=== PATIENT | male | born 1955 | race Asian ===

== ENCOUNTER 2018-04-14 08:41 | Outpatient (CLI) | payer MEDICARE, MEDICAID, SELFPAY ==
[2018-04-14] VITALS (11 sets, daily range): BP systolic 161–210; BP diastolic 72–112; PULSE 39–51; RESP 16–25; TEMP 36.1; O2SAT 96–100
--- NOTE | 2018-04-14 08:43 | DI.RAD.S_ITS ---
PROCEDURE: PAIN C/T INTERLAMINAR INJECT INDICATIONS: Cervical stenosis with upper extremity radiculopathy FINDINGS: Fluoroscopic spot filming was performed to verify placement of spinal needles at the posterior midline epidural space, C6-C7 region level(s), as labeled on the films. Appropriate location(s) of the needle tip(s) was confirmed by injection of iodinated contrast. IMPRESSION: Successful dorsal epidural injection at the posterior midline, C6 and C7 area. Dictated by: Fabien Reno M.D. on 04/14/2018 at 12:46 Approved by: Fabien Reno M.D. on 04/14/2018 at 12:47
[2018-04-14] MEDS: DEXAMETHASONE 10 MG/ML VIAL 30 MG INJ (10:05)
[2018-04-14] MEDS: LIDOCAINE 1% 20 ML INJ 5 ML INJ (10:05)
[2018-04-14] MEDS: MIDAZOLAM 5 MG/5 ML VIAL IV (10:05)
[2018-04-14] MEDS: IOPAMIDOL 15 ML VIAL 3 ML INJ (10:05)
--- NOTE | 2018-04-14 10:31 | PM.PROC.1 ---
Procedures Date/Time Date of procedure: 04/14/18 Time of procedure: 10:31 General Procedure description: PREOP DIAGNOSIS 1. CERVICAL STENOSIS, 2. CERVICAL HNP WITH UPPER EXTREMITY RADICULAR FEATURES, POST OP DIAGNOSIS 1. CERVICAL STENOSIS, 2. CERVICAL HNP WITH UPPER EXTREMITY RADICULAR FEATURES, PROCEDURES 1. FLUORSCOPICALLY GUIDED CONTRAST CONTROLLED INTERLAMINAR EPIDURAL STEROID INJECTION - C6/7 TL MIGUE PHYSICIAN: Allan Flores DO INDICATIONS Multilevel Cervical Stenosis with HNP with Upper Extremity Paresthesias. FINDINGS Cervical Stenosis due to disc deterioration and nerve root irritation and nerve root irritation DESCRIPTION OF PROCEDURE Fluoroscopically guided, contrast-controlled C6/7 translaminar epidural steroid injection with conscious sedation. Following denial of allergy and review of potential side effects and complications, including, but not necessarily limited to, infection, allergic reaction, local tissue breakdown, temporary as well as permanent nerve injury, stroke, paralysis, and possible , the patient indicated that patient understood and agreed to proceed. An informed consent document was signed by the patient, witnessed by a nurse, and placed in the patient's chart. Additionally, other treatment options including modalities, medications, and physical therapy were reviewed with the patient. Per the patient request, IV conscious sedation was administered via 4mg of Versed to patient comfort. The patient's vital signs were monitored throughout the procedure by both the nurse and the physician without significant fluctuation. The patient remained conversant throughout the procedure. In the prone position, following sterile prep and drape of the cervical region, the C6/7 translaminar space was identified fluoroscopically. The skin was anesthetized via a 25-gauge 1.5-inch needle with 1% lidocaine solution. At this point, a 25-gauge, 2.5-inch short bevel spinal needle was atraumatically introduced and advanced under fluoroscopic guidance into epidural space at the C6/7 translaminar space. Depth was confirmed on lateral view. Radiological data, including multiple fluoroscopic views of the cervical spine, reveal a spinal needle at the C6/7 translaminar space. Lateral views then show placement of the needle in the epidural space. Subsequent views show contrast material flowing superiorly and inferiorly in the epidural space. DSA fluoroscopy with live contrast injection, once again, confirmed no vascular or intrathecal uptake. At this point, using loss of resistance technique with saline and air, the epidural space was entered. Following negative aspiration, injection of approximately 1.5 cc of Isovue-200 with live fluoroscopy in the AP view confirmed epidural flow in the epidural space without vascular or intrathecal uptake observed. Subsequently, a test dose of 1 cc of 1% lidocaine solution was injected and patient was observed for two minutes without signs or symptoms of complications, including abdominal pain, shortness of breath, bilateral upper or lower extremity weakness, nausea and vomiting, prior to steroid injection. At this point, 3 cc or 30 mg of dexamethasone was then injected without incident. The patient was then transferred to the recovery area where they were observed for an appropriate period of time after the injection. The patient reported a VAS score of 6 prior to the procedure and a post-procedure VAS of 0. Total Fluoroscopy Time: 37.0 seconds Total Conscious Time: 24min POST OP INSTRUCTIONS The patient was provided a Pain Log to continue to record their response to the target-specific procedure prior to follow-up visit with the referring provider. Additionally, specific post-injection care instructions and a contact number to our office were provided if concerns arise regarding possible complications associated with the procedure are suspected. Allan Flores DO Complications: none
== END 2018-04-14 11:15 | disposition home or self-care (01) ==
PROVIDERS: PCP Family Medicine; Visit Provider Physical Medicine & Rehabilitation
DX: M48.02 Spinal stenosis, cervical region (principal); M47.22 Other spondylosis with radiculopathy, cervical region
CPT/HCPCS: 62321; 99152; 99153; J1100; J2250

== ENCOUNTER 2018-05-15 08:42 | Inpatient (IN) | payer MEDICARE, MEDICAID, SELFPAY ==
[2018-05-15] VITALS (29 sets, daily range): BP systolic 123–195; BP diastolic 63–96; PULSE 26–48; RESP 10–23; TEMP 36–36.4; O2SAT 77–100
--- NOTE | 2018-05-15 08:41 | DI.CT.S_ITS ---
PROCEDURE: CT HEAD/BRAIN WO CON INDICATIONS: mental status change TECHNIQUE: Noncontrast 4.5 mm thick angled axial sections acquired from the foramen magnum to the vertex, with coronal and sagittal reformats. For radiation dose reduction, the following was used: automated exposure control, adjustment of mA and/or kV according to patient size. COMPARISON: [facility], CT, HEAD WITHOUT CONTRAST, 05/22/2016, 15:59. FINDINGS: Image quality: Excellent. CSF spaces: Basal cisterns are patent. No extra-axial fluid collections. The ventricles are symmetric in size and shape. Brain: No intracranial bleeds or masses. No change in hypodensity within the anteroinferior frontal lobes bilaterally. There is cerebral volume loss for age, with resultant ventricular and sulcal prominence. There are periventricular and deep white matter chronic small vessel ischemic changes. There is intracranial internal carotid artery atherosclerosis. Skull and face: Calvarium and visualized facial bones appear intact, without suspicious lesions. Sinuses: Visualized sinuses and mastoids are clear. IMPRESSION: No acute intracranial abnormality. Findings discussed with Dr. Resendiz on 05.15.18 at 0903 hrs. Dictated by: Benjamin Anderson M.D. on 05/15/2018 at 9:03 Approved by: Benjamin Anderson M.D. on 05/15/2018 at 9:05
--- NOTE | 2018-05-15 09:03 | DI.CT.S_ITS ---
PROCEDURE: CT ANGIO HEAD AND NECK INDICATIONS: mental status change TECHNIQUE: Pre-contrast 4.5 mm thick sections acquired from the foramen magnum to the vertex. After the administration of intravenous contrast, 1 mm thick sections acquired from the aortic arch through the [place] of [place]. Post-contrast 4.5 mm thick sections then re-acquired from the foramen magnum to the vertex. 3-dimensional sytzbvw-gezigqcaw-gniqxsmeec (MIP) and/or volume rendering reformats were acquired of the central intracranial vasculature and neck separately. COMPARISON: None. FINDINGS: Image quality: Excellent. BRAIN: CSF spaces: Ventricles are normal in size and shape. Basal cisterns are patent. No extra-axial fluid collections. Brain: No midline shift. No intracranial bleeds or masses. [place]-white matter interface appears intact. Skull and face: Calvarium and facial bones appear intact, without suspicious lesions. Orbits appear normal. Sinuses: Left maxillary sinus opacification is present. Mild right maxillary sinus mucosal thickening. HEAD CT ANGIOGRAPHY: Anterior circulation: Intracranial internal carotid arteries are normal in size and flow. The flow within the paired anterior cerebral arteries is normal and symmetric. The flow within the middle cerebral arteries is normal and symmetric. The anterior communicating artery is seen. No aneurysms are seen. Posterior circulation: Visualized portions of the vertebral arteries demonstrate normal caliber, and join to form a normal appearing basilar artery. Flow within the posterior cerebral arteries is normal and symmetric. No aneurysms are seen. NECK CT ANGIOGRAPHY: Carotid system: The great vessels demonstrate a conventional anatomy as they arise from the aortic arch. The origins of the common carotid arteries appear patent. The common carotid arteries demonstrate normal caliber and courses. The bifurcation regions are both widely patent. The internal carotid arteries demonstrate normal calibers and courses. Posterior circulation: The origins of the vertebral arteries both appear widely patent. The more superior extracranial portions of both vertebral arteries also demonstrate normal courses and calibers. They join to form a normal appearing basilar artery. Soft tissues: Visualized neck soft tissues demonstrate an 18 mm diameter peripherally calcified right thyroid nodule Bones: No suspicious bony lesions. Visualized cervical spine appears normally aligned. IMPRESSION: 1. No acute process involving the arterial tree of the head and neck. No evidence of large vessel occlusion. 2. No acute intracranial abnormality. 3. Right thyroid mass, which could be further assessed with ultrasound, if clinically indicated. Any quantitative measurements of stenosis were performed using NASCET criteria. Dictated by: Benjamin Anderson M.D. on 05/15/2018 at 9:39 Approved by: Benjamin Anderson M.D. on 05/15/2018 at 9:43
--- NOTE | 2018-05-15 09:22 | ED.AMS ---
HPI - Altered Mental Status General Chief Complaint: Altered Mental Status Stated Complaint: Unconsoious Time Seen by Provider: 05/15/18 08:44 Source: family and EMS Mode of arrival: EMS Limitations: altered mental status History of Present Illness HPI narrative: 63-year-old male with history of hypertension, untreated diabetes, and schizophrenia presents by EMS for evaluation of mental status change. Patient went to bed feeling completely fine and awoke at his baseline. He was last seen normal at 5:00 a.m.. There is a very stressful scenario and the family last evening and the had been discussing the circumstances with her at 5:00 a.m. before leaving his bedside. He was found unresponsive at about 830 without focal neurologic findings. EMS arrived and found him obtunded, administered Narcan which may have woken him up a bit but not significantly. His fast exam was negative and he was activated as a code stroke given mental status change. His administers his medications and states there been no changes and there is no chance that he got any extras MD complaint: altered mental status and decreased responsiveness Onset (ago): hour(s) Time: 05:00 Timing confirmed by: spouse Severity: moderate Consistency of symptoms: constant Treatments prior to arrival: IV fluid, oxygen and other (narcan) Related Data Home Medications Medication Instructions Recorded Confirmed ASPIRIN (Aspir-Low) 81 mg PO QDAY #0 03/16/12 05/15/18 cetirizine 10 mg PO QDAYP PRN #0 tab 07/21/16 05/15/18 lurasidone [Latuda] 20 mg PO QPM #0 03/05/17 05/15/18 cholecalciferol (vitamin D3) 400 unit PO QDAY #0 10/06/17 04/29/18 [Vitamin D3] multivitamin [Multiple Vitamins] 1 tab PO QDAY #0 10/06/17 04/29/18 pyridoxine (vitamin B6) 100 mg PO QPM #0 10/06/17 04/29/18 vitamin E 1,000 unit PO QDAY #0 10/06/17 04/29/18 Previous Rx's Medication Instructions Recorded simvastatin [Zocor] 40 mg PO QDAY #90 tab 02/20/17 hydrochlorothiazide 25 mg PO QDAY #90 tab 10/09/17 albuterol sulfate [Ventolin HFA] 2 puff INH Q4HP PRN #1 inh 11/18/17 losartan [Cozaar] 100 mg PO QDAY #30 tab 01/04/18 fluoxetine 40 mg PO QDAY #90 cap 01/18/18 doxazosin 4 mg tablet 4 mg PO ONCE #30 tab 02/17/18 metoprolol succinate [Toprol XL] 50 mg PO BID #60 tab 03/18/18 trazodone 50 mg tablet See Label Instructions PO HSP PRN 04/26/18 #30 tab acetaminophen 300 mg-codeine 30 mg See Label Instructions PO Q6H PRN 05/11/18 tablet #30 tab Allergies Allergy/AdvReac Type Severity Reaction Status Date / Time smallpox vaccine,live Allergy Mild Verified 04/29/18 10:49 [SMALLPOX VACCINE,LIVE] Review of Systems Review of Systems unobtainable due to mental status Exam Narrative Exam Narrative: Patient of tended, minimally following commands but guarding his airway without difficulty Initial Vital Signs Initial Vital Signs: Vital Signs Pulse Rate 31 L 05/15/18 08:52 Respiratory Rate 18 05/15/18 08:52 Const General: No cooperative and in distress Nutritional Appearance: well nourished Orientation: not alert, not awake, not oriented x3, confused and obtunded Limitations: altered mental status [facility] Head: normocephalic and atraumatic Ears: external ears normal and TM's normal bilaterally Nose: external nose normal and No nasal discharge Face and sinus: sinuses nontender, face symmetric, no sinus tenderness and No dry mucous membranes Mouth: oral mucosae normal and moist mucous membranes Teeth and gingiva: dentition normal Throat: tonsils normal and uvula midline Eyes General: appearance normal, both eyes and all related structures Eyelids: eyelids normal Conjunctivae: conjunctivae normal Sclera: sclerae normal Pupils: PERRL and pinpoint EOM: EOM intact bilaterally Chest Chest: normal inspection of the chest Cardio Rate: regular rate Rhythm: regular rhythm Heart Sounds: no click, no gallops, no murmurs and no rubs Pulses: normal peripheral pulses Back/Spine/Pelvis Back: No CVA tenderness Cervical Spine: cervical ROM normal and No pain with cervical ROM Thoracic/Lumbar Spine: thoracic and lumbar spine normal to inspection Skin General: no rashes or lesions noted, No jaundice and No petechiae Neuro General: no meningeal signs and no focal motor deficits Motor: muscle tone normal throughout Sensory Exam: no sensory deficits noted Extrem General: full ROM, no clubbing, cyanosis or edema, no pedal edema and no calf tenderness Course Orders Ordered: ED Orders 05/15/18 08:41 CT head/brain wo con Stat 05/15/18 08:42 EKG-12 Lead Stat 05/15/18 09:03 CT angio head and neck Stat 05/15/18 09:27 Acetaminophen Stat Blood Culture Stat Complete Blood Count AUTO DIFF Stat Comprehensive Metabolic Panel Stat Ethanol (ETOH) Stat Lactate (Lactic Acid) Stat Prolactin Stat Salicylate Stat Thyroid Stimulating Hormone Stat Troponin I Stat 05/15/18 09:49 Ammonia (NH3) Stat 05/15/18 10:20 Urine Culture Stat Urine Drug Screen, Rapid Stat 05/15/18 12:32 Consult to Loan Services Professional Routine 05/15/18 13:00 MRSA PCR Stat 05/15/18 14:19 BiPAP Ventilatory Support Asse RT PROTOCOL 05/16/18 05:00 B Type Natriuretic Peptide Routine Basic Metabolic Panel Routine Complete Blood Count AUTO DIFF Routine Dextrose (D50w) 25 gm IV PRN PRN PRN Reason: Hypoglycemia Sodium Chloride (Normal Saline 0.9%) 1,000 mls @ 150 mls/hr IV CONT GHADA Last Infusion: 05/15/18 13:11 Dose: 150 mls/hr Admin: 05/15/18 09:33 Dose: 150 mls/hr Insulin Aspart (Novolog Flexpen) 0 unit SUBCUT ACHS GHADA; Protocol Naloxone HCl (Narcan) 0.4 mg IV Q2MIN PRN PRN Reason: Opiate Reversal Last Admin: 05/15/18 09:33 Dose: 0.4 mg Discontinued Medications Naloxone HCl (Narcan) 2 mg IV NOW ONE Stop: 05/15/18 09:46 Last Admin: 05/15/18 09:52 Dose: 2 mg Vital Signs - 8 hr 05/15/18 08:52 05/15/18 08:54 05/15/18 09:20 Temperature 96.9 F L Pulse Rate 31 L 38 L 34 L Respiratory Rate 18 18 18 Blood Pressure 177/89 H Blood Pressure [Right Arm] 153/81 H Pulse Oximetry 100 100 05/15/18 09:27 05/15/18 09:30 05/15/18 09:45 Temperature Pulse Rate 32 L 36 L 26 L Respiratory Rate 18 18 Blood Pressure Blood Pressure [Right Arm] 195/86 H 154/89 H Pulse Oximetry 77 L 98 96 05/15/18 10:03 05/15/18 10:32 05/15/18 10:45 Temperature Pulse Rate 35 L 39 L 37 L Respiratory Rate 18 18 18 Blood Pressure Blood Pressure [Right Arm] 180/79 H 172/65 H 135/64 H Pulse Oximetry 98 97 97 05/15/18 11:14 05/15/18 11:15 05/15/18 11:30 Temperature Pulse Rate 34 L 32 L 32 L Respiratory Rate 18 17 19 Blood Pressure Blood Pressure [Right Arm] 141/73 H 139/77 H 139/73 H Pulse Oximetry 98 98 99 05/15/18 11:45 05/15/18 12:00 05/15/18 12:32 Temperature Pulse Rate 31 L 32 L 37 L Respiratory Rate 21 18 20 Blood Pressure Blood Pressure [Right Arm] 134/71 H 123/65 H 125/75 H Pulse Oximetry 99 98 100 05/15/18 12:45 05/15/18 13:09 05/15/18 13:19 Temperature 97.6 F Pulse Rate 32 L 32 L 42 L Respiratory Rate 20 18 16 Blood Pressure 133/68 H 134/63 H Blood Pressure [Right Arm] 133/68 H Pulse Oximetry 99 98 100 05/15/18 13:27 05/15/18 14:27 05/15/18 15:00 Temperature 96.8 F L Pulse Rate 34 L 31 L Respiratory Rate 22 12 Blood Pressure 187/79 H 183/76 H Blood Pressure [Right Arm] Pulse Oximetry 100 05/15/18 16:05 Temperature Pulse Rate Respiratory Rate Blood Pressure 179/96 H Blood Pressure [Right Arm] Pulse Oximetry MDM - Altered Mental Status Differential Diagnosis Likely alcoholic intoxication, altered mental status, delirium, hypoglycemia, hyponatremia and subarachnoid hemorrhage Medical Records Attestation: I reviewed the patient's medical records. Lab Data Result diagrams: 05/15/18 09:27 05/15/18 09:27 Lab Results 05/15/18 05/15/18 05/15/18 Range/Units 09:27 09:27 09:27 WBC 5.7 (4.5-11.0) X10^3/uL RBC 4.44 L (4.5-5.9) X10^6/uL Hgb 14.1 (13.5-17.5) g/dL Hct 39.5 L (41-53) % MCV 89.0 (80-100) fL MCH 31.7 (26-34) PG MCHC 35.6 (30-36) % RDW 12.7 (11.6-14.8) % Plt Count 189 (150-400) X10^3/uL Neut % (Auto) 61.9 (50-75) % Lymph % (Auto) 27.1 (25-40) % [place] % (Auto) 7.9 (3-14) % Eos % (Auto) 2.6 (2-4) % Baso % (Auto) 0.5 (0-2) % Neut # (Auto) 3500 (8840-5096) /uL Sodium 137 (137-145) mmol/L Potassium 4.0 (3.4-5.1) mmol/L Chloride 97 L (98-107) mmol/L Carbon Dioxide 33 H (22-32) mmol/L BUN 20 (9-20) mg/dL Creatinine 1.20 (0.66-1.25) mg/dL Estimated GFR > 60.0 (>60) mL/min BUN/Creatinine Ratio 16.7 (6-22) Glucose 154 H (80-110) mg/dL Lactate 1.1 (0.7-2.1) mmol/L Calcium 9.2 (8.4-10.2) mg/dL Total Bilirubin 0.7 (0.2-1.3) mg/dL AST 34 (17-59) IU/L ALT 33 (21-72) IU/L Alkaline Phosphatase 49 (38-126) U/L Ammonia (9-30) umol/L Troponin I < 0.012 (0.01-0.034) ng/mL Total Protein 6.9 (6.3-8.2) g/dL Albumin 4.1 (3.5-5.0) g/dL Globulin 2.8 (1.7-4.1) g/dL Albumin/Globulin Ratio 1.5 (1.0-2.8) TSH (0.47-4.68) uIU/mL Prolactin 26.4 H (3.7-17.9) ng/mL Nasal Screen MRSA (PCR) (Negative) Salicylates < 1.0 (<20) mg/dL Urine Opiates Screen (Negative) Ur Oxycodone Screen (Negative) Urine Methadone Screen (Negative) Acetaminophen < 10 L (10-30) ug/mL Ur Barbiturates Screen (Negative) U Tricyclic Antidepress (Negative) Ur Phencyclidine Scrn (Negative) Ur Amphetamines Screen (Negative) U Methamphetamines Scrn (Negative) Ur MDMA Scrn (Ecstasy) (Negative) U Benzodiazepines Scrn (Negative) Urine Cocaine Screen (Negative) U Marijuana (THC) Screen (Negative) Ethyl Alcohol < 10 mg/dL 05/15/18 05/15/18 05/15/18 Range/Units 09:27 09:49 10:20 WBC (4.5-11.0) X10^3/uL RBC (4.5-5.9) X10^6/uL Hgb (13.5-17.5) g/dL Hct (41-53) % MCV (80-100) fL MCH (26-34) PG MCHC (30-36) % RDW (11.6-14.8) % Plt Count (150-400) X10^3/uL Neut % (Auto) (50-75) % Lymph % (Auto) (25-40) % [place] % (Auto) (3-14) % Eos % (Auto) (2-4) % Baso % (Auto) (0-2) % Neut # (Auto) (3916-0955) /uL Sodium (137-145) mmol/L Potassium (3.4-5.1) mmol/L Chloride (98-107) mmol/L Carbon Dioxide (22-32) mmol/L BUN (9-20) mg/dL Creatinine (0.66-1.25) mg/dL Estimated GFR (>60) mL/min BUN/Creatinine Ratio (6-22) Glucose (80-110) mg/dL Lactate (0.7-2.1) mmol/L Calcium (8.4-10.2) mg/dL Total Bilirubin (0.2-1.3) mg/dL AST (17-59) IU/L ALT (21-72) IU/L Alkaline Phosphatase (38-126) U/L Ammonia < 9.0 L (9-30) umol/L Troponin I (0.01-0.034) ng/mL Total Protein (6.3-8.2) g/dL Albumin (3.5-5.0) g/dL Globulin (1.7-4.1) g/dL Albumin/Globulin Ratio (1.0-2.8) TSH 0.86 (0.47-4.68) uIU/mL Prolactin (3.7-17.9) ng/mL Nasal Screen MRSA (PCR) (Negative) Salicylates (<20) mg/dL Urine Opiates Screen Positive H (Negative) Ur Oxycodone Screen Positive H (Negative) Urine Methadone Screen Negative (Negative) Acetaminophen (10-30) ug/mL Ur Barbiturates Screen Negative (Negative) U Tricyclic Antidepress Negative (Negative) Ur Phencyclidine Scrn Negative (Negative) Ur Amphetamines Screen Negative (Negative) U Methamphetamines Scrn Negative (Negative) Ur MDMA Scrn (Ecstasy) Negative (Negative) U Benzodiazepines Scrn Positive H (Negative) Urine Cocaine Screen Negative (Negative) U Marijuana (THC) Screen Negative (Negative) Ethyl Alcohol mg/dL 05/15/18 Range/Units 13:00 WBC (4.5-11.0) X10^3/uL RBC (4.5-5.9) X10^6/uL Hgb (13.5-17.5) g/dL Hct (41-53) % MCV (80-100) fL MCH (26-34) PG MCHC (30-36) % RDW (11.6-14.8) % Plt Count (150-400) X10^3/uL Neut % (Auto) (50-75) % Lymph % (Auto) (25-40) % [place] % (Auto) (3-14) % Eos % (Auto) (2-4) % Baso % (Auto) (0-2) % Neut # (Auto) (5912-9100) /uL Sodium (137-145) mmol/L Potassium (3.4-5.1) mmol/L Chloride (98-107) mmol/L Carbon Dioxide (22-32) mmol/L BUN (9-20) mg/dL Creatinine (0.66-1.25) mg/dL Estimated GFR (>60) mL/min BUN/Creatinine Ratio (6-22) Glucose (80-110) mg/dL Lactate (0.7-2.1) mmol/L Calcium (8.4-10.2) mg/dL Total Bilirubin (0.2-1.3) mg/dL AST (17-59) IU/L ALT (21-72) IU/L Alkaline Phosphatase (38-126) U/L Ammonia (9-30) umol/L Troponin I (0.01-0.034) ng/mL Total Protein (6.3-8.2) g/dL Albumin (3.5-5.0) g/dL Globulin (1.7-4.1) g/dL Albumin/Globulin Ratio (1.0-2.8) TSH (0.47-4.68) uIU/mL Prolactin (3.7-17.9) ng/mL Nasal Screen MRSA (PCR) Negative for mrsa (Negative) Salicylates (<20) mg/dL Urine Opiates Screen (Negative) Ur Oxycodone Screen (Negative) Urine Methadone Screen (Negative) Acetaminophen (10-30) ug/mL Ur Barbiturates Screen (Negative) U Tricyclic Antidepress (Negative) Ur Phencyclidine Scrn (Negative) Ur Amphetamines Screen (Negative) U Methamphetamines Scrn (Negative) Ur MDMA Scrn (Ecstasy) (Negative) U Benzodiazepines Scrn (Negative) Urine Cocaine Screen (Negative) U Marijuana (THC) Screen (Negative) Ethyl Alcohol mg/dL Imaging Data Head/ Neck Angio: Radiologist's impression: PROCEDURE: CT ANGIO HEAD AND NECK INDICATIONS: mental status change TECHNIQUE: Pre-contrast 4.5 mm thick sections acquired from the foramen magnum to the vertex. After the administration of intravenous contrast, 1 mm thick sections acquired from the aortic arch through the [place] of [place]. Post-contrast 4.5 mm thick sections then re-acquired from the foramen magnum to the vertex. 3-dimensional awxghhm-vjeizhins-shkhulrcai (MIP) and/or volume rendering reformats were acquired of the central intracranial vasculature and neck separately. COMPARISON: None. FINDINGS: Image quality: Excellent. BRAIN: CSF spaces: Ventricles are normal in size and shape. Basal cisterns are patent. No extra-axial fluid collections. Brain: No midline shift. No intracranial bleeds or masses. [place]-white matter interface appears intact. Skull and face: Calvarium and facial bones appear intact, without suspicious lesions. Orbits appear normal. Sinuses: Left maxillary sinus opacification is present. Mild right maxillary sinus mucosal thickening. HEAD CT ANGIOGRAPHY: Anterior circulation: Intracranial internal carotid arteries are normal in size and flow. The flow within the paired anterior cerebral arteries is normal and symmetric. The flow within the middle cerebral arteries is normal and symmetric. The anterior communicating artery is seen. No aneurysms are seen. Posterior circulation: Visualized portions of the vertebral arteries demonstrate normal caliber, and join to form a normal appearing basilar artery. Flow within the posterior cerebral arteries is normal and symmetric. No aneurysms are seen. NECK CT ANGIOGRAPHY: Carotid system: The great vessels demonstrate a conventional anatomy as they arise from the aortic arch. The origins of the common carotid arteries appear patent. The common carotid arteries demonstrate normal caliber and courses. The bifurcation regions are both widely patent. The internal carotid arteries demonstrate normal calibers and courses. Posterior circulation: The origins of the vertebral arteries both appear widely patent. The more superior extracranial portions of both vertebral arteries also demonstrate normal courses and calibers. They join to form a normal appearing basilar artery. Soft tissues: Visualized neck soft tissues demonstrate an 18 mm diameter peripherally calcified right thyroid nodule Bones: No suspicious bony lesions. Visualized cervical spine appears normally aligned. IMPRESSION: 1. No acute process involving the arterial tree of the head and neck. No evidence of large vessel occlusion. 2. No acute intracranial abnormality. 3. Right thyroid mass, which could be further assessed with ultrasound, if clinically indicated. Any quantitative measurements of stenosis were performed using NASCET criteria. Dictated by: Benjamin Anderson M.D. on 05/15/2018 at 9:39 Approved by: Benjamin Anderson M.D. on 05/15/2018 at 9:43 Discharge Plan Departure Patient Disposition: Admitted As Inpatient Clinical Impression: Polypharmacy, Accidental overdose Discharge Date/Time: 05/15/18 13:10 Interventions: ED Discharge Assessment Last Done: 05/15/18 13:09 Admit Date/Time: 05/15/18 11:51 Admit Provider: Maximo Long
[2018-05-15] MEDS: NALOXONE 0.4 MG/ML VIAL IV (09:33)
[2018-05-15] MEDS: SODIUM CHLORIDE 0.9% 1,000 ML 150 ML IV ×2 (09:33→18:39)
[2018-05-15 09:37] LABS: Add Manual Diff / Slide Review NO; Basophils Percent Auto 0.5 % (0-2); Eosinophils Percent Auto 2.6 % (2-4); Hematocrit 39.5 % (41-53); Hemoglobin 14.1 g/dL (13.5-17.5); Lymphocytes Percent Auto 27.1 % (25-40); Mean Corpuscular HGB Conc 35.6 % (30-36); Mean Corpuscular Hemoglobin 31.7 PG (26-34); Monocytes Percent Auto 7.9 % (3-14); Neutrophils Absolute Auto 3500 /uL (3000-5900); Neutrophils Percent Auto 61.9 % (50-75); Platelet Count 189 X10^3/uL (150-400); Red Blood Cell Count 4.44 X10^6/uL (4.5-5.9); Red Cell Distribution Width 12.7 % (11.6-14.8); White Blood Cell Count 5.7 X10^3/uL (4.5-11.0)
--- NOTE | 2018-05-15 09:40 | PC.NURSE ---
0849- patient to CT at this time. Received non contrast CT scan of head. Waited for read and then received ct angio with contrast. Second IV placed in CT. Patient on monitor the whole time with HR from 30-48bpm.
--- NOTE | 2018-05-15 09:42 | PC.NURSE ---
0918- returned form CT, back on monitor in room.
[2018-05-15 09:47] LABS: Acetaminophen < 10 ug/mL (10-30); Alanine Aminotransferase 33 IU/L (21-72); Albumin 4.1 g/dL (3.5-5.0); Albumin Globulin Ratio 1.5 (1.0-2.8); Alkaline Phosphatase 49 U/L (38-126); Aspartate Aminotransferase 34 IU/L (17-59); BUN Creatinine Ratio 16.7 (6-22); Bilirubin Total 0.7 mg/dL (0.2-1.3); Blood Urea Nitrogen 20 mg/dL (9-20); Calcium 9.2 mg/dL (8.4-10.2); Carbon Dioxide 33 mmol/L (22-32); Chloride 97 mmol/L (98-107); Estimated Glomerular Filt Rate > 60.0 mL/min (>60); Ethanol (ETOH) < 10 mg/dL; Globulin 2.8 g/dL (1.7-4.1); Glucose 154 mg/dL (80-110); HEMOLYSIS < 15 (0-50); Lactate (Lactic Acid) 1.1 mmol/L (0.7-2.1); Sodium 137 mmol/L (137-145); Total Protein 6.9 g/dL (6.3-8.2)
[2018-05-15 09:49] LABS: Salicylate < 1.0 mg/dL (<20)
[2018-05-15] MEDS: NALOXONE 1 MG/ML SYRINGE 2 MG IV (09:52)
--- NOTE | 2018-05-15 09:55 | PC.NURSE ---
periods of sleep Apnea, maintaining O2 at 1005. has sleep apnea per . Patient responsive with facial grimace to IV placement.
--- NOTE | 2018-05-15 09:59 | PC.NURSE ---
patient having longer periods of apnea with O2 level dipping to 70's. Placed on 2L NC at this time and maintaining at 98% afterward. He is more sedate at this time than previously.
[2018-05-15 10:02] LABS: Prolactin 26.4 ng/mL (3.7-17.9)
[2018-05-15 10:03] LABS: Troponin I < 0.012 ng/mL (0.01-0.034)
[2018-05-15 10:04] LABS: Ammonia (NH3) < 9.0 umol/L (9-30)
--- NOTE | 2018-05-15 10:07 | PC.NURSE ---
0923- Patient began experiencing tremors and stiffness in bilateral upper extremities and face. Pupils still sluggish with 3mm size and equal. No upward or deviated gaze. DO Proctor at bedside. Unsure of seizure like activity at this time. Order given for narcan.
--- NOTE | 2018-05-15 10:08 | PC.NURSE ---
0945- patient noted to no longer be stiff but is flaccid and less responsive/more sedate and obtunded at this time. Possibly post ictal if earlier symptoms were seizure like activity. On O2 for periods of sleep apnea which are more pronounced after episode. Gag reflex is minimal but present with a popsicle stick down throat. Patient is mildly responsive to strong sternal rub. No response form either dose of narcan.
--- NOTE | 2018-05-15 10:24 | PC.NURSE ---
no response to pain while inserting catheter, continues snoring.
--- NOTE | 2018-05-15 10:28 | PC.NURSE ---
unable to obtain scores for best gaze, visual, bilateral motor leg, limb ataxia, sensory, extinction or inattention due to decreased level of consciousness and inability to follow commands.
--- NOTE | 2018-05-15 10:32 | PC.NURSE ---
Continues with snoring respirations and periods of sleep apnea.
[2018-05-15 11:05] LABS: Thyroid Stimulating Hormone 0.86 uIU/mL (0.47-4.68)
[2018-05-15 11:07] LABS: Urine Amphetamines Negative (Negative); Urine Barbiturates Negative (Negative); Urine Benzodiazepines Positive (Negative); Urine Cocaine Negative (Negative); Urine MDMA Negative (Negative); Urine Methadone Negative (Negative); Urine Methamphetamines Negative (Negative); Urine Morphine/Opi cutoff 2000 Positive (Negative); Urine Oxycodone Positive (Negative); Urine Phencyclidine Negative (Negative); Urine Tetrahydrocannabinol Negative (Negative); Urine Tricyclic Antidepressant Negative (Negative)
--- NOTE | 2018-05-15 11:49 | PM.HP.1 ---
History of Present Illness Date Patient Seen: 05/15/18 Time Patient Seen: 11:49 Chief complaint: Unconsoious Narrative: 63-year-old male presented by EMS to [facility] ED after being found down and unconscious and unresponsive by spouse at home. He was last seen normal at about 05:00. About 08:30 he was found to be unresponsive. EMS arrived and found him to be obtained ended administered Narcan which perhaps made some minor difference. He was transported to the [facility] Emergency Department as a possible stroke. His evaluation in the emergency department did not show evidence of CVA in fact was much more consistent with a polypharmacy or perhaps postictal state. Patient has his medications administered by his spouse who is adamant that there was no medication is managed with his usual prescription medications Patient's urinary tox screen suggest additional medications in his system that are not prescribed to him such as benzodiazepines and oxycodone Patient has longstanding history of mental illness, which includes schizophrenia, attention deficit disorder, and posttraumatic brain injury. He is followed by Psychiatry in the local area but none of that information is available to me in his [facility] computerized record. He was under increased stress evening prior to this with his son who apparently has his own issues and ended up incarcerated in [facility] overnight because of burglary issues. Patient History Medical History Schizophrenia (Chronic) Traumatic brain injury (Chronic 06/17/11) Prolonged QT interval (Chronic) Attention deficit disorder (Chronic) Bradycardia (Chronic) Spinal stenosis, site unspecified (Chronic 10/13/13) Controlled type 2 diabetes mellitus (Chronic 06/17/11) Essential hypertension (Chronic 06/17/11) Other and unspecified hyperlipidemia (Chronic) Chronic diastolic heart failure (Chronic 01/14/17) Cervical stenosis of spinal canal (Chronic) Cervical spondylitis with radiculitis (Chronic) Cervical spondylosis with radiculopathy (Chronic) Cervical radiculopathy due to osteoarthritis of spine (Chronic 10/13/13) Type 2 diabetes mellitus without complication, without long-term current use of insulin (Chronic 01/14/17) History of hepatitis C virus infection (Chronic 01/19/18) Hyperuricemia (Inactive 06/17/11) 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) Hypertension (Inactive) Surgical History Status post laminectomy Family & Social History Family History: Reviewed 05/15/18 by Maximo Long MD Tobacco & Substance use: Smoking Status Never smoker Meds Home Medications Medication Instructions Recorded Confirmed Type ASPIRIN (Aspir-Low) 81 mg PO QDAY #0 03/16/12 05/15/18 History cetirizine 10 mg PO QDAYP PRN #0 tab 07/21/16 05/15/18 History simvastatin [Zocor] 40 mg PO QDAY #90 tab 02/20/17 05/15/18 Rx lurasidone [Latuda] 20 mg PO QPM #0 03/05/17 05/15/18 History cholecalciferol (vitamin D3) 400 unit PO QDAY #0 10/06/17 04/29/18 History [Vitamin D3] multivitamin [Multiple Vitamins] 1 tab PO QDAY #0 10/06/17 04/29/18 History pyridoxine (vitamin B6) 100 mg PO QPM #0 10/06/17 04/29/18 History vitamin E 1,000 unit PO QDAY #0 10/06/17 04/29/18 History hydrochlorothiazide 25 mg PO QDAY #90 tab 10/09/17 05/15/18 Rx albuterol sulfate [Ventolin HFA] 2 puff INH Q4HP PRN #1 inh 11/18/17 05/15/18 Rx losartan [Cozaar] 100 mg PO QDAY #30 tab 01/04/18 05/15/18 Rx fluoxetine 40 mg PO QDAY #90 cap 01/18/18 05/15/18 Rx doxazosin 4 mg tablet 4 mg PO ONCE #30 tab 02/17/18 05/15/18 Rx metoprolol succinate [Toprol XL] 50 mg PO BID #60 tab 03/18/18 05/15/18 Rx trazodone 50 mg tablet See Label Instructions PO HSP PRN 04/26/18 05/15/18 Rx #30 tab acetaminophen 300 mg-codeine 30 mg See Label Instructions PO Q6H PRN 05/11/18 05/15/18 Rx tablet #30 tab Allergies Allergy/AdvReac Type Severity Reaction Status Date / Time smallpox vaccine,live Allergy Mild Verified 04/29/18 10:49 [SMALLPOX VACCINE,LIVE] Review of Systems Review of Systems Unable to obtain review of systems from this comatose/unresponsive/minimally responsive patient Exam Vital Signs (past 8 hours): - 05/15/18 08:52 05/15/18 08:54 05/15/18 09:20 Temperature 96.9 F L Pulse Rate 31 L 38 L 34 L Respiratory Rate 18 18 18 Blood Pressure 177/89 H Blood Pressure [Right Arm] 153/81 H Pulse Oximetry 100 100 05/15/18 09:27 05/15/18 09:30 05/15/18 09:45 Temperature Pulse Rate 32 L 36 L 26 L Respiratory Rate 18 18 Blood Pressure Blood Pressure [Right Arm] 195/86 H 154/89 H Pulse Oximetry 77 L 98 96 05/15/18 10:03 05/15/18 10:32 05/15/18 11:14 Temperature Pulse Rate 35 L 39 L 34 L Respiratory Rate 18 18 18 Blood Pressure Blood Pressure [Right Arm] 180/79 H 172/65 H 141/73 H Pulse Oximetry 98 97 98 Oxygen Delivery Method Nasal Cannula Oxygen Flow Rate 2 Const Nutritional Appearance: well nourished Orientation: obtunded Limitations: altered mental status [facility] Head: normocephalic, atraumatic, No cyanosis of lips/distal nose, No raccoon eyes and No periorbital ecchymosis Ears: hearing grossly normal bilaterally and external ears normal Nose: external nose normal and nares normal Face and sinus: normal facial exam and face symmetric (At rest, no purposeful movement) Mouth: oral mucosae normal, lip normal and tongue normal Eyes Alignment and Position: alignment normal Periorbital: periorbital findings normal Eyelids: eyelids normal Conjunctivae: conjunctivae normal Sclera: sclerae normal Cornea: corneas normal Pupils: PERRL (But very sluggish) and pinpoint (Maybe not quite pinpoint but very small) Neck Neck: normal visual inspection, trachea midline and No anterior neck swelling Carotids: normal carotid upstroke Lymphatic: No lymphadenopathy Chest Chest: normal inspection of the chest, No crepitus and No tenderness Breast inspection: normal inspection of the breasts Resp Effort & Inspection: normal respiratory effort, no audible wheezes, no cough, no retractions and not tachypneic Auscultation: clear to auscultation bilaterally, no rales, no rhonchi and no wheezes Percussion: percussion normal Cardio Palpation: normal PMI Rate: bradycardic Rhythm: regular rhythm Heart Sounds: S1 normal, S2 normal and normal, physiologic split S2 Bruits: no carotid bruits Pulses: brachial pulses present and radial pulses present GI Inspection: normal to inspection Palpation: soft and no hepatosplenomegaly Percussion: normal to percussion Auscultation: normal bowel sounds Back/Spine/Pelvis Back: No CVA tenderness Cervical Spine: normal cervical lordosis Thoracic/Lumbar Spine: thoracic and lumbar spine normal to inspection Skin General: no rashes or lesions noted, No excoriations, No induration, No jaundice, No mottling and No petechiae Lesions: no lesions (no worrisome/abl lesions) Rashes: no rashes Trauma: no lacerations or abrasions Wounds: no wounds Hair: normal Neuro General: obtunded (Does not respond to deep pain stimuli) and unable to assess gait Plantar Reflexes: Equivocal: bilateral Other: Difficult to get much of a neuro exam from this comatose patient Extrem General: normal to inspection, no clubbing, cyanosis or edema and No calf tenderness Right upper extremity: normal to inspection Left upper extremity: normal to inspection Right lower extremity: normal to inspection Left lower extremity: normal to inspection Objective Labs Result Diagrams: 05/15/18 09:27 05/15/18 09:27 Labs: Laboratory Results - last 24 hr 05/15/18 05/15/18 05/15/18 09:27 09:27 09:27 WBC 5.7 RBC 4.44 L Hgb 14.1 Hct 39.5 L MCV 89.0 MCH 31.7 MCHC 35.6 RDW 12.7 Plt Count 189 Neut % (Auto) 61.9 Lymph % (Auto) 27.1 Cloud % (Auto) 7.9 Eos % (Auto) 2.6 Baso % (Auto) 0.5 Neut # (Auto) 3500 Sodium 137 Potassium 4.0 Chloride 97 L Carbon Dioxide 33 H BUN 20 Creatinine 1.20 Estimated GFR > 60.0 BUN/Creatinine Ratio 16.7 Glucose 154 H Lactate 1.1 Calcium 9.2 Total Bilirubin 0.7 AST 34 ALT 33 Alkaline Phosphatase 49 Ammonia Troponin I < 0.012 Total Protein 6.9 Albumin 4.1 Globulin 2.8 Albumin/Globulin Ratio 1.5 TSH Prolactin 26.4 H Salicylates < 1.0 Urine Opiates Screen Ur Oxycodone Screen Urine Methadone Screen Acetaminophen < 10 L Ur Barbiturates Screen U Tricyclic Antidepress Ur Phencyclidine Scrn Ur Amphetamines Screen U Methamphetamines Scrn Ur MDMA Scrn (Ecstasy) U Benzodiazepines Scrn Urine Cocaine Screen U Marijuana (THC) Screen Ethyl Alcohol < 10 05/15/18 05/15/18 05/15/18 09:27 09:49 10:20 WBC RBC Hgb Hct MCV MCH MCHC RDW Plt Count Neut % (Auto) Lymph % (Auto) Cloud % (Auto) Eos % (Auto) Baso % (Auto) Neut # (Auto) Sodium Potassium Chloride Carbon Dioxide BUN Creatinine Estimated GFR BUN/Creatinine Ratio Glucose Lactate Calcium Total Bilirubin AST ALT Alkaline Phosphatase Ammonia < 9.0 L Troponin I Total Protein Albumin Globulin Albumin/Globulin Ratio TSH 0.86 Prolactin Salicylates Urine Opiates Screen Positive H Ur Oxycodone Screen Positive H Urine Methadone Screen Negative Acetaminophen Ur Barbiturates Screen Negative U Tricyclic Antidepress Negative Ur Phencyclidine Scrn Negative Ur Amphetamines Screen Negative U Methamphetamines Scrn Negative Ur MDMA Scrn (Ecstasy) Negative U Benzodiazepines Scrn Positive H Urine Cocaine Screen Negative U Marijuana (THC) Screen Negative Ethyl Alcohol Assessment & Plan Plan: Assessment/Plan Narrative: 1. Encephalopathy secondary to polypharmacy-patient's altered mental status almost certainly due to his ingestion multiple different things including opiates benzodiazepines and perhaps others that have yet to be identified. At this point he is protecting his airway and has no evidence of cardiovascular compromise. He is minimally bradycardic but that is his usual state. He should be monitored carefully in ICU setting for further deterioration, but at this point that seems unlikely. Given that we not really sure what's in his system I do not think the use of a benzodiazepine antagonist would actually be helpful. I have had limited success with this in the past. He is hemodynamically and cardiovascularly stable at this point. 2. Mental health-patient likely with an intentional ingestion of multiple substances as above. Will have executive secretary social welfare see him to help assess his mental health and appropriateness for discharge home versus to some other facility for ongoing care of his mental illness, when he becomes more fully awake and alert after the drugs he has ingested wear off. He will not be taking any of his usual medications until he is more fully awake and alert but when that occurs he should be back on his usual meds 3. Diabetes-will follow blood sugars in use coverage insulin as necessary. The patient is more awake he can return to oral medication and diabetic diet 4. Chronic diastolic heart failure-continue usual medications, when patient is able to from a mental status standpoint Patient clearly requires inpatient hospitalization in ICU setting given his obtunded status and potential for cardiovascular and other compromise. He will more like the not be in the hospital greater than 48 hr to include 2 separate midnights Scores GCS Jud coma scale eye opening: None Alesia coma scale verbal response: None Alesia coma scale motor response: None Alesia coma scale total score: 3
--- NOTE | 2018-05-15 11:59 | P.HP_ITS ---
History of Present Illness Date Patient Seen: 05/15/18 Time Patient Seen: 11:49 Chief complaint: Unconsoious Narrative: 63-year-old male presented by EMS to [facility] ED after being found down and unconscious and unresponsive by spouse at home. He was last seen normal at about 05:00. About 08:30 he was found to be unresponsive. EMS arrived and found him to be obtained ended administered Narcan which perhaps made some minor difference. He was transported to the [facility] Emergency Department as a possible stroke. His evaluation in the emergency department did not show evidence of CVA in fact was much more consistent with a polypharmacy or perhaps postictal state. Patient has his medications administered by his spouse who is adamant that there was no medication is managed with his usual prescription medications Patient's urinary tox screen suggest additional medications in his system that are not prescribed to him such as benzodiazepines and oxycodone Patient has longstanding history of mental illness, which includes schizophrenia , attention deficit disorder, and posttraumatic brain injury. He is followed by Psychiatry in the local area but none of that information is available to me in his [facility] computerized record. He was under increased stress evening prior to this with his son who apparently has his own issues and ended up incarcerated in [facility] overnight because of burglary issues. Patient History Medical History Schizophrenia (Chronic) Traumatic brain injury (Chronic 06/17/11) Prolonged QT interval (Chronic) Attention deficit disorder (Chronic) Bradycardia (Chronic) Spinal stenosis, site unspecified (Chronic 10/13/13) Controlled type 2 diabetes mellitus (Chronic 06/17/11) Essential hypertension (Chronic 06/17/11) Other and unspecified hyperlipidemia (Chronic) Chronic diastolic heart failure (Chronic 01/14/17) Cervical stenosis of spinal canal (Chronic) Cervical spondylitis with radiculitis (Chronic) Cervical spondylosis with radiculopathy (Chronic) Cervical radiculopathy due to osteoarthritis of spine (Chronic 10/13/13) Type 2 diabetes mellitus without complication, without long-term current use of insulin (Chronic 01/14/17) History of hepatitis C virus infection (Chronic 01/19/18) Hyperuricemia (Inactive 06/17/11) 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) Hypertension (Inactive) Surgical History Status post laminectomy Family & Social History Family History: Reviewed 05/15/18 by Maximo Long MD Tobacco & Substance use: Smoking Status Never smoker Meds Home Medications Medication Instructions Recorded Confirmed Type ASPIRIN (Aspir-Low) 81 mg PO QDAY #0 03/16/12 05/15/18 History cetirizine 10 mg PO QDAYP PRN #0 tab 07/21/16 05/15/18 History simvastatin [Zocor] 40 mg PO QDAY #90 tab 02/20/17 05/15/18 Rx lurasidone [Latuda] 20 mg PO QPM #0 03/05/17 05/15/18 History cholecalciferol (vitamin D3) 400 unit PO QDAY #0 10/06/17 04/29/18 History [Vitamin D3] multivitamin [Multiple Vitamins] 1 tab PO QDAY #0 10/06/17 04/29/18 History pyridoxine (vitamin B6) 100 mg PO QPM #0 10/06/17 04/29/18 History vitamin E 1,000 unit PO QDAY #0 10/06/17 04/29/18 History hydrochlorothiazide 25 mg PO QDAY #90 tab 10/09/17 05/15/18 Rx albuterol sulfate [Ventolin HFA] 2 puff INH Q4HP PRN #1 inh 11/18/17 05/15/18 Rx losartan [Cozaar] 100 mg PO QDAY #30 tab 01/04/18 05/15/18 Rx fluoxetine 40 mg PO QDAY #90 cap 01/18/18 05/15/18 Rx doxazosin 4 mg tablet 4 mg PO ONCE #30 tab 02/17/18 05/15/18 Rx metoprolol succinate [Toprol XL] 50 mg PO BID #60 tab 03/18/18 05/15/18 Rx trazodone 50 mg tablet See Label Instructions PO HSP PRN 04/26/18 05/15/18 Rx #30 tab acetaminophen 300 mg-codeine 30 mg See Label Instructions PO Q6H PRN 05/11/18 Rx tablet #30 tab Allergies Allergy/AdvReac Type Severity Reaction Status Date / Time smallpox vaccine,live Allergy Mild Verified 04/29/18 10:49 [SMALLPOX VACCINE,LIVE] Review of Systems Review of Systems Unable to obtain review of systems from this comatose/unresponsive/minimally responsive patient Exam Vital Signs (past 8 hours): - 05/15/18 08:52 05/15/18 08:54 05/15/18 09:20 Temperature 96.9 F L Pulse Rate 31 L 38 L 34 L Respiratory Rate 18 18 18 Blood Pressure 177/89 H Blood Pressure [Right Arm] 153/81 H Pulse Oximetry 100 100 05/15/18 09:27 05/15/18 09:30 05/15/18 09:45 Temperature Pulse Rate 32 L 36 L 26 L Respiratory Rate 18 18 Blood Pressure Blood Pressure [Right Arm] 195/86 H 154/89 H Pulse Oximetry 77 L 98 96 05/15/18 10:03 05/15/18 10:32 05/15/18 11:14 Temperature Pulse Rate 35 L 39 L 34 L Respiratory Rate 18 18 18 Blood Pressure Blood Pressure [Right Arm] 180/79 H 172/65 H 141/73 H Pulse Oximetry 98 97 98 Oxygen Delivery Method Nasal Cannula Oxygen Flow Rate 2 Const Nutritional Appearance: well nourished Orientation: obtunded Limitations: altered mental status [facility] Head: normocephalic, atraumatic, No cyanosis of lips/distal nose, No raccoon eyes and No periorbital ecchymosis Ears: hearing grossly normal bilaterally and external ears normal Nose: external nose normal and nares normal Face and sinus: normal facial exam and face symmetric (At rest, no purposeful movement) Mouth: oral mucosae normal, lip normal and tongue normal Eyes Alignment and Position: alignment normal Periorbital: periorbital findings normal Eyelids: eyelids normal Conjunctivae: conjunctivae normal Sclera: sclerae normal Cornea: corneas normal Pupils: PERRL (But very sluggish) and pinpoint (Maybe not quite pinpoint but very small) Neck Neck: normal visual inspection, trachea midline and No anterior neck swelling Carotids: normal carotid upstroke Lymphatic: No lymphadenopathy Chest Chest: normal inspection of the chest, No crepitus and No tenderness Breast inspection: normal inspection of the breasts Resp Effort & Inspection: normal respiratory effort, no audible wheezes, no cough, no retractions and not tachypneic Auscultation: clear to auscultation bilaterally, no rales, no rhonchi and no wheezes Percussion: percussion normal Cardio Palpation: normal PMI Rate: bradycardic Rhythm: regular rhythm Heart Sounds: S1 normal, S2 normal and normal, physiologic split S2 Bruits: no carotid bruits Pulses: brachial pulses present and radial pulses present GI Inspection: normal to inspection Palpation: soft and no hepatosplenomegaly Percussion: normal to percussion Auscultation: normal bowel sounds Back/Spine/Pelvis Back: No CVA tenderness Cervical Spine: normal cervical lordosis Thoracic/Lumbar Spine: thoracic and lumbar spine normal to inspection Skin General: no rashes or lesions noted, No excoriations, No induration, No jaundice , No mottling and No petechiae Lesions: no lesions (no worrisome/abl lesions) Rashes: no rashes Trauma: no lacerations or abrasions Wounds: no wounds Hair: normal Neuro General: obtunded (Does not respond to deep pain stimuli) and unable to assess gait Plantar Reflexes: Equivocal: bilateral Other: Difficult to get much of a neuro exam from this comatose patient Extrem General: normal to inspection, no clubbing, cyanosis or edema and No calf tenderness Right upper extremity: normal to inspection Left upper extremity: normal to inspection Right lower extremity: normal to inspection Left lower extremity: normal to inspection Objective Labs Result Diagrams: 05/15/18 09:27 05/15/18 09:27 Labs: Laboratory Results - last 24 hr 05/15/18 05/15/18 05/15/18 09:27 09:27 09:27 WBC 5.7 RBC 4.44 L Hgb 14.1 Hct 39.5 L MCV 89.0 MCH 31.7 MCHC 35.6 RDW 12.7 Plt Count 189 Neut % (Auto) 61.9 Lymph % (Auto) 27.1 Real % (Auto) 7.9 Eos % (Auto) 2.6 Baso % (Auto) 0.5 Neut # (Auto) 3500 Sodium 137 Potassium 4.0 Chloride 97 L Carbon Dioxide 33 H BUN 20 Creatinine 1.20 Estimated GFR > 60.0 BUN/Creatinine Ratio 16.7 Glucose 154 H Lactate 1.1 Calcium 9.2 Total Bilirubin 0.7 AST 34 ALT 33 Alkaline Phosphatase 49 Ammonia Troponin I < 0.012 Total Protein 6.9 Albumin 4.1 Globulin 2.8 Albumin/Globulin Ratio 1.5 TSH Prolactin 26.4 H Salicylates < 1.0 Urine Opiates Screen Ur Oxycodone Screen Urine Methadone Screen Acetaminophen < 10 L Ur Barbiturates Screen U Tricyclic Antidepress Ur Phencyclidine Scrn Ur Amphetamines Screen U Methamphetamines Scrn Ur MDMA Scrn (Ecstasy) U Benzodiazepines Scrn Urine Cocaine Screen U Marijuana (THC) Screen Ethyl Alcohol < 10 05/15/18 05/15/18 05/15/18 09:27 09:49 10:20 WBC RBC Hgb Hct MCV MCH MCHC RDW Plt Count Neut % (Auto) Lymph % (Auto) Real % (Auto) Eos % (Auto) Baso % (Auto) Neut # (Auto) Sodium Potassium Chloride Carbon Dioxide BUN Creatinine Estimated GFR BUN/Creatinine Ratio Glucose Lactate Calcium Total Bilirubin AST ALT Alkaline Phosphatase Ammonia < 9.0 L Troponin I Total Protein Albumin Globulin Albumin/Globulin Ratio TSH 0.86 Prolactin Salicylates Urine Opiates Screen Positive H Ur Oxycodone Screen Positive H Urine Methadone Screen Negative Acetaminophen Ur Barbiturates Screen Negative U Tricyclic Antidepress Negative Ur Phencyclidine Scrn Negative Ur Amphetamines Screen Negative U Methamphetamines Scrn Negative Ur MDMA Scrn (Ecstasy) Negative U Benzodiazepines Scrn Positive H Urine Cocaine Screen Negative U Marijuana (THC) Screen Negative Ethyl Alcohol Assessment & Plan Plan: Assessment/Plan Narrative: 1. Encephalopathy secondary to polypharmacy-patient's altered mental status almost certainly due to his ingestion multiple different things including opiates benzodiazepines and perhaps others that have yet to be identified. At this point he is protecting his airway and has no evidence of cardiovascular compromise. He is minimally bradycardic but that is his usual state. He should be monitored carefully in ICU setting for further deterioration, but at this point that seems unlikely. Given that we not really sure what's in his system I do not think the use of a benzodiazepine antagonist would actually be helpful. I have had limited success with this in the past. He is hemodynamically and cardiovascularly stable at this point. 2. Mental health-patient likely with an intentional ingestion of multiple substances as above. Will have social media marketing specialist see him to help assess his mental health and appropriateness for discharge home versus to some other facility for ongoing care of his mental illness, when he becomes more fully awake and alert after the drugs he has ingested wear off. He will not be taking any of his usual medications until he is more fully awake and alert but when that occurs he should be back on his usual meds 3. Diabetes-will follow blood sugars in use coverage insulin as necessary. The patient is more awake he can return to oral medication and diabetic diet 4. Chronic diastolic heart failure-continue usual medications, when patient is able to from a mental status standpoint Patient clearly requires inpatient hospitalization in ICU setting given his obtunded status and potential for cardiovascular and other compromise. He will more like the not be in the hospital greater than 48 hr to include 2 separate midnights Scores GCS [place] coma scale eye opening: None Alesia coma scale verbal response: None [place] coma scale motor response: None Alesia coma scale total score: 3
--- NOTE | 2018-05-15 13:08 | PC.NURSE ---
Med list obtained from [facility] and faxed to ED at this time. It was walked over to the patient's RN in the ICU by efe BRISENO.
--- NOTE | 2018-05-15 14:20 | PC.ADMIT ---
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 Patient's smoking status: Never smoker. Vital Signs - 8 hr 05/15/18 08:52 05/15/18 08:54 05/15/18 09:20 Temperature 96.9 F L Pulse Rate 31 L 38 L 34 L Respiratory Rate 18 18 18 Blood Pressure 177/89 H Blood Pressure [Right Arm] 153/81 H Pulse Oximetry 100 100 05/15/18 09:27 05/15/18 09:30 05/15/18 09:45 Temperature Pulse Rate 32 L 36 L 26 L Respiratory Rate 18 18 Blood Pressure Blood Pressure [Right Arm] 195/86 H 154/89 H Pulse Oximetry 77 L 98 96 05/15/18 10:03 05/15/18 10:32 05/15/18 10:45 Temperature Pulse Rate 35 L 39 L 37 L Respiratory Rate 18 18 18 Blood Pressure Blood Pressure [Right Arm] 180/79 H 172/65 H 135/64 H Pulse Oximetry 98 97 97 05/15/18 11:14 05/15/18 11:15 05/15/18 11:30 Temperature Pulse Rate 34 L 32 L 32 L Respiratory Rate 18 17 19 Blood Pressure Blood Pressure [Right Arm] 141/73 H 139/77 H 139/73 H Pulse Oximetry 98 98 99 05/15/18 11:45 05/15/18 12:00 05/15/18 12:32 Temperature Pulse Rate 31 L 32 L 37 L Respiratory Rate 21 18 20 Blood Pressure Blood Pressure [Right Arm] 134/71 H 123/65 H 125/75 H Pulse Oximetry 99 98 100 05/15/18 12:45 05/15/18 13:09 05/15/18 13:19 Temperature 97.6 F Pulse Rate 32 L 32 L 42 L Respiratory Rate 20 18 16 Blood Pressure 133/68 H 134/63 H Blood Pressure [Right Arm] 133/68 H Pulse Oximetry 99 98 100 05/15/18 13:27 Temperature Pulse Rate 34 L Respiratory Rate 22 Blood Pressure Blood Pressure [Right Arm] Pulse Oximetry Rec'd pt from ED at 1300. Initially non responsive on 2L NC with SPO2 98-100%. Apneic episodes noted. RT notified and placed ETCO2 at 1330. Pt continues to have significant apnea and gurgly/wet breath sounds. Bedside monitor shows HRs high 20s to 30s. Noted intermittent independent upward movement of arms. ETCO2 avg 55. Called to Dr. Long. Rec'd order to place pt on bipap. No family at bedside currently to assist with admission assessment. Rec'd med list from [facility]. Will update med rec.
--- NOTE | 2018-05-15 15:34 | PC.NURSE ---
Addendum entered by Rachel Leggett R.N. 05/15/18 17:22: Patient remains at a glascow of 3. Dr. Long notified to ask about using Romazicon since the patient does have benzodiazipines on the tox screen. Dr. Long declined to order. Original Note: 1530-Patient resting in bed. Minimal response to painful stimuli, grimace only. Pupils are 2mm and sluggish bilaterally. Heart rate is 30 patient is known to be bradicardic. Bp is 183/76. Patient is on Bipap 12/7 32%. NS is infusing through a peripheral line at 150cc/hr. Ramsey catheter draining clear straw colored urine. Patient is full code.
--- NOTE | 2018-05-15 16:14 | RT ---
BRANDY Escamilla spoke with MD Long and was given order for BIPAP. BIPAP placed but told BRANDY Brown that patient would need a one to one sitter while on the machine. Suggested intubation as an alternative but MD would like BIPAP for now. No ABG ordered per MD Long. Patient will gag when suctioned orally with Yankauer. Grimaces to painful stimuli. Was able to mumble some answers to some questions earlier when I was first called to the room but now does not respond.
--- NOTE | 2018-05-15 17:56 | PM.EVENT ---
Date Patient Seen: 05/15/18 Time Patient Seen: 17:56 Patient remains quite of time does not respond to painful stimuli. He has had some brief periods of apnea under close observation in the ICU. BiPAP was instituted which seems to be helpful. He does manage to produce tidal volumes of 300-400 or so. Heart rate remains bradycardic in the 30-45 range, which is his baseline. Patient's blood pressure is if anything slightly elevated. At this point he is hemodynamically and cardiovascularly stable. Respiratory status seems stable. Continue with current interventions. 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 At this point still seems most likely this is polypharmacy rather than some other disorder such as seizure disorder or stroke. 1 of the ICU nurses was able to get him to open his mouth and bite down on suction equipment but nobody else has been able to produce any sort of response from him.
--- NOTE | 2018-05-15 18:08 | PC.NURSE ---
1800- Patient is awake and responding to questions but is confused. Patient off of Bipap and is on room air saturation is 97%. Patient is oriented to self and day of the week. Patient has no recollection of what happened to him this am. Patient states he did not intentionally try to hurt himself and he has no plan to hurt himself. Dr. Long was at bedside when patient awoke. Will monitor.
--- NOTE | 2018-05-15 18:09 | PM.EVENT ---
Date Patient Seen: 05/15/18 Time Patient Seen: 18:10 mere minutes after the last note was entered, I would back to the patient's room and tried with a bit more force to get a response with a sternal rub. Initially he had absolutely no reflexes or response at his feet but with a sternal rub he did seem to awaken. He was able to verbalize that it was Thursday when asked what day of the week it was. He claimed to have no recollection or at least shook his head no as to what happened in the morning. He seemed unhappy that he was in the hospital. Continue to monitor him and keep him NPO for now. If his mental status continues to improve he may be able to eat and/or take his meds later in the day. Continue with careful monitoring in the ICU for now. Scores GCS [place] coma scale eye opening: To pressure [place] coma scale verbal response: Words [place] coma scale motor response: Localising [place] coma scale total score: 10
[2018-05-15] MEDS: INSULIN ASPART 100 UNIT/ML INSULN PEN SUBCUT (18:39)
--- NOTE | 2018-05-15 18:54 | PC.NURSE ---
1850- Patient desaturating to 89% while sleeping. 02 placed on at 2l cannula and saturation is 99%.
[2018-05-16] VITALS (13 sets, daily range): BP systolic 146–223; BP diastolic 73–95; PULSE 35–91; RESP 11–21; TEMP 36.6–36.9; O2SAT 94–99
[2018-05-16] MEDS: SODIUM CHLORIDE 0.9% 1,000 ML 150 ML IV (01:25)
[2018-05-16 05:32] LABS: Add Manual Diff / Slide Review NO; Basophils Percent Auto 0.3 % (0-2); Eosinophils Percent Auto 2.1 % (2-4); Hematocrit 39.6 % (41-53); Hemoglobin 14.1 g/dL (13.5-17.5); Lymphocytes Percent Auto 21.9 % (25-40); Mean Corpuscular HGB Conc 35.5 % (30-36); Mean Corpuscular Hemoglobin 31.5 PG (26-34); Mean Corpuscular Volume 88.8 fL (80-100); Monocytes Percent Auto 7.1 % (3-14); Neutrophils Absolute Auto 4800 /uL (3000-5900); Neutrophils Percent Auto 68.6 % (50-75); Platelet Count 179 X10^3/uL (150-400); Red Blood Cell Count 4.46 X10^6/uL (4.5-5.9); Red Cell Distribution Width 12.8 % (11.6-14.8)
[2018-05-16 05:44] LABS: BUN Creatinine Ratio 15.6 (6-22); Blood Urea Nitrogen 14 mg/dL (9-20); Calcium 8.7 mg/dL (8.4-10.2); Carbon Dioxide 33 mmol/L (22-32); Chloride 103 mmol/L (98-107); Estimated Glomerular Filt Rate > 60.0 mL/min (>60); Glucose 133 mg/dL (80-110); HEMOLYSIS < 15 (0-50); Potassium 3.9 mmol/L (3.4-5.1); Sodium 141 mmol/L (137-145)
[2018-05-16 06:09] LABS: B Type Natriuretic Peptide < 100.0 (<100)
--- NOTE | 2018-05-16 07:00 | DI.RAD.S_ITS ---
PROCEDURE: XR CHEST 1V INDICATIONS: hypoxia TECHNIQUE: One view of the chest was acquired. COMPARISON: [facility], CHEST 2 VIEW, 10/06/2017, 11:43. [facility], CHEST 2 VIEW, 11/09/2016, 15:19. FINDINGS: Surgical changes and devices: None. Lungs and pleura: No pleural effusions or pneumothorax. Lungs are clear. 0.6 cm nodular opacity projecting over the right lung base, not seen on comparison exams. Mediastinum: Mediastinal contours appear normal. Heart size is normal. Bones and chest wall: Overlying soft tissues appear unremarkable. Multilevel degenerative changes of the spine. IMPRESSION: #1. No focal consolidations concerning for pneumonia. #2. 0.6 cm nodular opacity projected over the right lung base, not seen on comparison exams. This may represent a pulmonary granuloma, bone island/enostosis, or true pulmonary nodule. Recommend followup PA and lateral chest radiographs in 6 months; consider chest CT if the patient has risk factors for pulmonary disease such as a history of smoking. Dictated by: Robert Corbin M.D. on 05/16/2018 at 22:47 Approved by: Robert Corbin M.D. on 05/16/2018 at 22:53
--- NOTE | 2018-05-16 08:33 | PC.NURSE ---
Addendum entered by Kevin Vick R.N. 05/16/18 12:26: Pt states he is ready to go home. He is concerned about his who needs a lot of care and takes a lot of medications. He is answering questions appropriately with clear speech. His pupils are equal, round, and reactive to light bilaterally 3mm. He is up walking around the room with a steady gait. He voided 400 ml of yellow urine per urinal. He denies pain. He denies feeling lightheaded or dizzy. His last BP 146/76. The patient is asking to get dressed. He states he lives a short distance from the hospital and is able to walk home. Called to Dr. Long and reported that pt is insistant on going home. MD states he will discharge the patient and write prescriptions. Updated pt who is agreeable to this plan of care. Original Note: Rec'd pt sitting up in bed eyes open. Answering questions with clear speech. Following commands. Disoriented to date/time but knows he is in the hospital. He states he may have gotten some medications confused with his normal meds. He then states that his pills were mixed in with other pills and that is probably what happened. BP remain elevated. Pt is requesting something to eat. Pt tolerated ice chips and sips of water without any signs or symptoms of aspiration. Called to MD and reported BP 204/89, pt requests food. Orders received for 2 in ntg paste, full liquid diet, dc IVFs and dc tran. Pt tolerated full liquids. On recheck, BP was 172/83 (127). Pt reports his SBP is usually in the 200s and at times down to 170s. He reports that he has been evaluated for sleep apnea and has a cpap at home but he is unable to tolerate it. He states if he sleeps on his side, he is not apneic. He's currently sitting up to chair. He is impulsive but fairly steady with SBA. Placed chair alarm. Call light in reach. Will monitor.
[2018-05-16] MEDS: NITROGLYCERIN OINT 1 INCH/GM OINT...G. 2 INCH TOP (08:37)
--- NOTE | 2018-05-16 10:05 | P.PN_ITS ---
Subjective Date Patient Seen: 05/16/18 Time Patient Seen: 09:59 Interval history: Patient is sitting up in a chair at the bedside. Much more awake and alert of course. He does not really remember any of the details of yesterday in fact is really thinking today is Thursday so he did miss a whole 24 hr. Last thing he remembers is taking his usual medications and then kind of feelings on steady while believe things look weird him. He does recall medications being sort of strewn about the room he thinks in part because of his sons activity. He wonders if perhaps some medication got mixed up probably by his son including potentially the ?fake Xanax ? that the son makes. Does not have any new symptoms. No trouble breathing no chest pain. He is hungry. No nausea vomiting. Says he does feel a bit foggy in his head. However when I asked him if he has any pain he answers that he is old he has lots of pain which I think is a very appropriate answer. Exam Vital Signs (past 8 hours): - 05/16/18 02:00 05/16/18 03:00 05/16/18 04:00 Temperature 97.9 F Pulse Rate 40 L 38 L 36 L Respiratory Rate 15 11 L 16 Blood Pressure 216/94 H 211/78 H 187/77 H Pulse Oximetry 98 98 99 05/16/18 05:00 05/16/18 06:00 05/16/18 07:00 Temperature Pulse Rate 35 L 43 L 42 L Respiratory Rate 16 13 18 Blood Pressure 186/95 H 222/92 H 189/95 H Pulse Oximetry 98 98 97 05/16/18 08:00 05/16/18 08:37 05/16/18 09:00 Temperature 98.4 F Pulse Rate 55 L 53 L 51 L Respiratory Rate 21 16 Blood Pressure 204/89 H 204/89 H 172/83 H Pulse Oximetry 98 94 Fraction of Inspired Oxygen 32 Oxygen Delivery Method Nasal Cannula Oxygen Flow Rate 2 Const General: cooperative, comfortable, well developed and well hydrated Nutritional Appearance: well nourished Orientation: alert and awake [facility] Head: normal to inspection Ears: hearing grossly normal bilaterally Nose: external nose normal Eyes General: appearance normal, both eyes and all related structures Neck Neck: normal visual inspection Chest Chest: normal inspection of the chest Breast inspection: normal inspection of the breasts Resp Effort & Inspection: normal respiratory effort, able to speak in complete sentences and symmetric chest movement Auscultation: clear to auscultation bilaterally and no rubs Percussion: percussion normal Tactile Fremitus: tactile fremitus absent Cardio Palpation: normal PMI Rate: bradycardic Rhythm: regular rhythm Heart Sounds: S1 normal and S2 normal Pulses: brachial pulses present GI Inspection: normal to inspection Palpation: soft and no hepatosplenomegaly Percussion: normal to percussion Auscultation: normal bowel sounds Neuro General: alert, awake, oriented (Person place), tone normal, moves all extremities and no focal motor deficits Cranial Nerves: CN's II-XI intact bilaterally Speech: speech normal Extrem General: normal to inspection Psych Appearance: grossly normal Mental Status: mental status grossly normal Speech and Movement: speech and movement normal Mood: congruent mood Affect: normal affect Attitude: cooperative Thought Process: normal Thought Content: normal Objective Labs Result Diagrams: 05/16/18 05:06 05/16/18 05:06 Labs: Laboratory Results - last 24 hr 05/15/18 05/15/18 05/15/18 09:27 09:27 09:49 WBC RBC Hgb Hct MCV MCH MCHC RDW Plt Count Neut % (Auto) Lymph % (Auto) Crawford % (Auto) Eos % (Auto) Baso % (Auto) Neut # (Auto) Sodium Potassium Chloride Carbon Dioxide BUN Creatinine Estimated GFR BUN/Creatinine Ratio Glucose Calcium Ammonia < 9.0 L Troponin I < 0.012 B-Natriuretic Peptide TSH 0.86 Prolactin 26.4 H Nasal Screen MRSA (PCR) Urine Opiates Screen Ur Oxycodone Screen Urine Methadone Screen Ur Barbiturates Screen U Tricyclic Antidepress Ur Phencyclidine Scrn Ur Amphetamines Screen U Methamphetamines Scrn Ur MDMA Scrn (Ecstasy) U Benzodiazepines Scrn Urine Cocaine Screen U Marijuana (THC) Screen 05/15/18 05/15/18 05/16/18 10:20 13:00 05:06 WBC 7.0 RBC 4.46 L Hgb 14.1 Hct 39.6 L MCV 88.8 MCH 31.5 MCHC 35.5 RDW 12.8 Plt Count 179 Neut % (Auto) 68.6 Lymph % (Auto) 21.9 L Crawford % (Auto) 7.1 Eos % (Auto) 2.1 Baso % (Auto) 0.3 Neut # (Auto) 4800 Sodium Potassium Chloride Carbon Dioxide BUN Creatinine Estimated GFR BUN/Creatinine Ratio Glucose Calcium Ammonia Troponin I B-Natriuretic Peptide < 100.0 TSH Prolactin Nasal Screen MRSA (PCR) Negative for mrsa Urine Opiates Screen Positive H Ur Oxycodone Screen Positive H Urine Methadone Screen Negative Ur Barbiturates Screen Negative U Tricyclic Antidepress Negative Ur Phencyclidine Scrn Negative Ur Amphetamines Screen Negative U Methamphetamines Scrn Negative Ur MDMA Scrn (Ecstasy) Negative U Benzodiazepines Scrn Positive H Urine Cocaine Screen Negative U Marijuana (THC) Screen Negative 05/16/18 05:06 WBC RBC Hgb Hct MCV MCH MCHC RDW Plt Count Neut % (Auto) Lymph % (Auto) Crawford % (Auto) Eos % (Auto) Baso % (Auto) Neut # (Auto) Sodium 141 Potassium 3.9 Chloride 103 Carbon Dioxide 33 H BUN 14 Creatinine 0.90 Estimated GFR > 60.0 BUN/Creatinine Ratio 15.6 Glucose 133 H Calcium 8.7 Ammonia Troponin I B-Natriuretic Peptide TSH Prolactin Nasal Screen MRSA (PCR) Urine Opiates Screen Ur Oxycodone Screen Urine Methadone Screen Ur Barbiturates Screen U Tricyclic Antidepress Ur Phencyclidine Scrn Ur Amphetamines Screen U Methamphetamines Scrn Ur MDMA Scrn (Ecstasy) U Benzodiazepines Scrn Urine Cocaine Screen U Marijuana (THC) Screen Assessment & Plan Plan: Assessment/Plan Narrative: 1. Mental status change-patient appears to be back to baseline very close to it. I do believe he is not quite his normal self but is very close. Appropriately does not really remember any of the activities of yesterday. Does appear that some sort of presumably unintentional medication issue resulted in his becoming comatose. I will continue to follow him for the next 24 hr here in the hospital and if no new findings compatible to be discharged 2. Hypertension-as patient has become more awake and alert his blood pressures increased significantly. I will put him back on his usual meds which include several antihypertensives. Interestingly enough 1 of those is metoprolol which I would think would be a poor choice in this patient who is bradycardic at baseline. I will not resume that but instead switch to amlodipine I use some topical nitroglycerin intermittently this morning to help control blood pressure and tell I could assess his overall mental status ability to swallow etc. That could be discontinued at this point. 3. Diabetes-blood sugars have been fine at this point but he has been really NPO. Continue to follow as he has increased his diet. Overall patient's vastly improved he can be made for care and will keep him in the hospital over 24 hr. He likely be able to return home tomorrow. Scores GCS [place] coma scale eye opening: Spontaneous [place] coma scale verbal response: Orientated [place] coma scale motor response: Obey commands [place] coma scale total score: 15
[2018-05-16] MEDS: ASPIRIN EC 81 MG TABLET PO (10:27)
[2018-05-16] MEDS: LOSARTAN 50 MG TABLET 100 MG PO (10:27)
[2018-05-16] MEDS: AMLODIPINE 5 MG TABLET 10 MG PO (10:27)
[2018-05-16] MEDS: hydroCHLOROthiazide 25 MG TABLET PO (10:27)
[2018-05-16] MEDS: FLUoxetine 20 MG CAPSULE 40 MG PO (10:27)
--- NOTE | 2018-05-16 13:29 | PC.NURSE ---
Addendum entered by Kevin Vick R.N. 05/16/18 13:56: Pt escorted to emergency room entrance by AUTOMATION QA ANALYST via w/c in no acute distress. Cab will be here at 1400 to bring pt to [facility] and then to home. Original Note: Pt to d/c home per MD order. Reviewed d/c packet and educated regarding disease process, medications, next dose due, stroke education, drug OD, amlodipine, when to seek emergency medical treatment. Provided verbal diabetes education. Instructed pt to schedule f/u appt within [address] Parra. STRIKE PLANNING APPLICATIONS saw patient. A cab is called and awaiting arrival. Pt is sitting up to chair, dressed self, in no acute distress. Returned meds from pharmacy to patient.
--- NOTE | 2018-05-16 14:15 | CM.DPC ---
Discharge Planning/Care Management CM Discharge Assessment Start: 05/16/18 14:13 Freq: Status: Discharge Protocol: Document 05/16/18 14:13 (Rec: 05/16/18 14:15 [id number]) Discharge Planning Assessment Assigned It Security Analyst POWERSAW SUPERVISOR Advance Directives? No History Provided By Patient Medical Record Has Patient been admitted in last 30 No days? Prior Living Arrangements House Household Members spouse children Type of transporation used prior to Drives own vehicle admit Independent with ADL's Yes Is patient alert and oriented? Yes Caregiver for Another No Discharge Plan Home Referrals Initiated None needed Additional Comment Patient current open with [facility] team. Patient will continue to utilize their services. Rolling Down Machine Operator Consult Start: 05/16/18 13:40 Freq: Status: Discharge Protocol: Document 05/16/18 13:41 (Rec: 05/16/18 14:12 [id number]) Rolling Down Machine Operator Consult POWERSAW SUPERVISOR Assessment Type Risk of Suicide Other Reason for POWERSAW SUPERVISOR Referral 63 year old male found unresponsive. Narcan administered by EMS. Referred by ED Presenting Problem altered mental status and decreased responsiveness Mental health diagnosis Schizophrenia Traumatic brain injury VOA/CMS check Yes: Active with [facility] team Suicidal thoughts No Past Suicidal thoughts No Current Suicidal thoughts No Prior Suicide attempts No Current plan for self harm No Access to guns and weapons No Thoughts of harm to others No Past thoughts of harm to others No Current thoughts of harming others No Prior attempts to harm others No Current plan to harm others No Current Risk factors Marital and family difficulties Risk factor comments 17-year old son with multiple legal difficulties and substance abuse. Most recent legal difficulties occured at ED which resulted in [employer] detaining son. Crisis Plan Patient has crisis plan with [facility] that SW put in file. Reviewed Crisis plan and patient agreeable to complying . Patient states he enjoys working with [facility] for all MH needs. Resources Provided [facility] team medication assistant suleman Rivero ([phone]) will follow up with patient in person Action taken Sent home w/ safety plan Additional Comment [facility] Team yovani Rivero will follow up with patient today. Patient admitted for possible intention overdose. VOA/Mis checked revealed patient active with [facility] team for MH and prescribing services with an active crisis plan. Voluntary admission in 2004 at [facility] psych. [facility] Clinician Josefa called SW stating patient has never been suicidal, but does have an diagnosis of Schizophrenia which is being managed with medication and therapy. Patient does have history of verbal and physical aggression and high blood pressure. Patient goes by Abel and responds to calm, non-confrontation tone and reassurance. Josefa would like to see patient either in hospital today or at home for assessment and requested clinicals to be faxed to [phone]. Met with patient: patient was agreeable to communicate with SW. Patient denies intention overdose. Patient states his 17 year old son manufactures his own Xanax and patient believes son's fake xanax was mixed in with his medication. Son has long list of legal troubles starting in 6th grade. Son is currently detained at [facility] due to a burglary incident that occurred last night. Patient denies any thoughts of harm to self or others. Patient does not have access to guns or weapons. Patient admits he can get angry and want to fight others, but he has not wanted to do that for some time. Patient credits his effort with [facility] to his more positive mental status. Discussed [facility] crisis plan with patient: patient remains agreeable to follow the established plan and for clinician Josefa to either call or visit in person today. Patient provided permission to share clinicals and discuss discharge plan with [facility]. Discussed medication management with patient since son does seem to interfere with medication. Patient agreeable to obtaining medication lock box and taking picture of medications in order to tell if medication was swapped out. Patient reports his son will be moving out of his home in June. Called [facility]/Andrez: Andrez will put in request to PACT team to provide patient with medication lock box and to have follow up communication with patient either via telephone or in person (patient's discretion). Patient to discharge home today: Called [employer] to provide transportation under patient's Medicaid coverage. Transportation scheduled for 1400. Faxed clinicals to [facility] with update on discharge plan.
--- NOTE | 2018-05-17 08:46 | PM.DS.1 ---
History of Present Illness Chief complaint: Unconsoious Narrative: 63-year-old male presented by EMS to [facility] ED after being found down and unconscious and unresponsive by spouse at home. He was last seen normal at about 05:00. About 08:30 he was found to be unresponsive. EMS arrived and found him to be obtained ended administered Narcan which perhaps made some minor difference. He was transported to the [facility] Emergency Department as a possible stroke. His evaluation in the emergency department did not show evidence of CVA in fact was much more consistent with a polypharmacy or perhaps postictal state. Patient has his medications administered by his spouse who is adamant that there was no medication is managed with his usual prescription medications Patient's urinary tox screen suggest additional medications in his system that are not prescribed to him such as benzodiazepines and oxycodone Patient has longstanding history of mental illness, which includes schizophrenia, attention deficit disorder, and posttraumatic brain injury. He is followed by Psychiatry in the local area but none of that information is available to me in his [facility] computerized record. He was under increased stress evening prior to this with his son who apparently has his own issues and ended up incarcerated in [facility] overnight because of burglary issues. Discharge Providers Date of admission: 05/15/18 11:51 Primary care physician: Harlan Parra MD Consults: Discharge provider: Maximo Long MD Discharge Date: 05/16/18 Summary Discharge Diagnosis: 1. Coma/metabolic encephalopathy secondary to ingested medication 2. Polypharmacy 3. Accidental overdose 4. Schizophrenia 5. Bradycardia 6. Hypertension 7. Type 2 diabetes, controlled Hospital Course: Patient was admitted by the ED after being found down unresponsive at home. Was felt as though his obtundation/encephalopathy was secondary to ingestion of medication possibly illicit medication. He was hemodynamically and respiratory stable with some baseline apnea. He was monitored in ICU setting and did utilize BiPAP to help maintain adequate respiratory effort. Over the course of 18 or so hours patient's mental status improved. He became awake and alert and required no assistance with breathing. He still was somewhat apneic while sleeping on his back which is apparently an old problem. He was bradycardic as well which is a long-standing problem he was quite hypertensive as his mental status improved. He was started back on his usual oral medications including his antihypertensives and his psych meds. His beta-joe therapy was however withheld due to his severe bradycardia. A different antihypertensive (amlodipine) was substituted with adequate control blood pressure Patient was hungry were 8 well was able to be up and ambulate without difficulty. Discussing with him at some length the did not appear that though there was any intentional ingestion of anything despite the increased psychosocial stressors that had occurred in the few hours prior to patient being found down. Therefore he was felt to be stable for discharge home and was discharged home to continue on his usual medications with the exception of discontinuation of his metoprolol and substitution of amlodipine. Status at Discharge Cognitive/behavioral status at discharge: Back to baseline Functional status at discharge: independent ambulation Overall status at discharge: patient is back to baseline Exam Vital Signs (past 8 hours): Fraction of Inspired Oxygen 32 Oxygen Delivery Method Nasal Cannula Oxygen Flow Rate 2 Objective Labs Result Diagrams: 05/16/18 05:06 05/16/18 05:06 Discharge Plan Discharge Plan Patient Disposition: Home, Self-Care Provider Discharge Instructions Diet: Diet as Tolerated Discharge Data Primary Care Provider: Harlan Parra Attending Provider: Maximo Long Admit Date/Time: 05/15/18 11:51 Discharges patient from system. Discharge Date/Time: 05/16/18 14:00
--- NOTE | 2018-05-17 08:50 | P.DS_ITS ---
History of Present Illness Chief complaint: Unconsoious Narrative: 63-year-old male presented by EMS to [facility] ED after being found down and unconscious and unresponsive by spouse at home. He was last seen normal at about 05:00. About 08:30 he was found to be unresponsive. EMS arrived and found him to be obtained ended administered Narcan which perhaps made some minor difference. He was transported to the [facility] Emergency Department as a possible stroke. His evaluation in the emergency department did not show evidence of CVA in fact was much more consistent with a polypharmacy or perhaps postictal state. Patient has his medications administered by his spouse who is adamant that there was no medication is managed with his usual prescription medications Patient's urinary tox screen suggest additional medications in his system that are not prescribed to him such as benzodiazepines and oxycodone Patient has longstanding history of mental illness, which includes schizophrenia , attention deficit disorder, and posttraumatic brain injury. He is followed by Psychiatry in the local area but none of that information is available to me in his [facility] computerized record. He was under increased stress evening prior to this with his son who apparently has his own issues and ended up incarcerated in [facility] overnight because of burglary issues. Discharge Providers Date of admission: 05/15/18 11:51 Primary care physician: Harlan Parra MD Consults: Discharge provider: Maximo Long MD Discharge Date: 05/16/18 Summary Discharge Diagnosis: 1. Coma/metabolic encephalopathy secondary to ingested medication 2. Polypharmacy 3. Accidental overdose 4. Schizophrenia 5. Bradycardia 6. Hypertension 7. Type 2 diabetes, controlled Hospital Course: Patient was admitted by the ED after being found down unresponsive at home. Was felt as though his obtundation/encephalopathy was secondary to ingestion of medication possibly illicit medication. He was hemodynamically and respiratory stable with some baseline apnea. He was monitored in ICU setting and did utilize BiPAP to help maintain adequate respiratory effort. Over the course of 18 or so hours patient's mental status improved. He became awake and alert and required no assistance with breathing. He still was somewhat apneic while sleeping on his back which is apparently an old problem. He was bradycardic as well which is a long-standing problem he was quite hypertensive as his mental status improved. He was started back on his usual oral medications including his antihypertensives and his psych meds. His beta-joe therapy was however withheld due to his severe bradycardia. A different antihypertensive (amlodipine) was substituted with adequate control blood pressure Patient was hungry were 8 well was able to be up and ambulate without difficulty. Discussing with him at some length the did not appear that though there was any intentional ingestion of anything despite the increased psychosocial stressors that had occurred in the few hours prior to patient being found down. Therefore he was felt to be stable for discharge home and was discharged home to continue on his usual medications with the exception of discontinuation of his metoprolol and substitution of amlodipine. Status at Discharge Cognitive/behavioral status at discharge: Back to baseline Functional status at discharge: independent ambulation Overall status at discharge: patient is back to baseline Exam Vital Signs (past 8 hours): Fraction of Inspired Oxygen 32 Oxygen Delivery Method Nasal Cannula Oxygen Flow Rate 2 Objective Labs Result Diagrams: 05/16/18 05:06 05/16/18 05:06 Discharge Plan Discharge Plan Patient Disposition: Home, Self-Care Provider Discharge Instructions Diet: Diet as Tolerated Discharge Data Primary Care Provider: Harlan Parra Attending Provider: Maximo Long Admit Date/Time: 05/15/18 11:51 Discharges patient from system. Discharge Date/Time: 05/16/18 14:00
== END 2018-05-16 14:00 | disposition home or self-care (01) | DRG 917 ==
LOC: ED 11:22 → ICU 12:24
PROVIDERS: Admitting Provider Internal Medicine; Emergency Provider Emergency Medicine; PCP Family Medicine; Visit Provider Internal Medicine
DX: T40.601A Poisoning by unspecified narcotics, accidental (unintentional), initial encounter (principal); G92 Toxic encephalopathy; I50.32 Chronic diastolic (congestive) heart failure; Y92.019 Unspecified place in single-family (private) house as the place of occurrence of the external cause; E11.9 Type 2 diabetes mellitus without complications; R40.2433 Glasgow coma scale score 3-8, at hospital admission; R40.2142 Coma scale, eyes open, spontaneous, at arrival to emergency department; R40.2352 Coma scale, best motor response, localizes pain, at arrival to emergency department; R40.2242 Coma scale, best verbal response, confused conversation, at arrival to emergency department; F20.9 Schizophrenia, unspecified; Z87.820 Personal history of traumatic brain injury; F98.8 Other specified behavioral and emotional disorders with onset usually occurring in childhood and adolescence; T42.4X1A Poisoning by benzodiazepines, accidental (unintentional), initial encounter; R00.1 Bradycardia, unspecified; R06.81 Apnea, not elsewhere classified; I11.0 Hypertensive heart disease with heart failure
CPT/HCPCS: 36415; 51701; 70450; 70496; 70498; 71045; 80048; 80053; 80305; 80320; 80329; 82140; 82962; 83605; 83880; 84146; 84443; 84484; 85025; 87040; 87086; 87797; 93005; 93010; 94660; 94770; 96361; 96374; 99223; 99238; 99285; G0480; J2310; Q9967

== ENCOUNTER → 2018-08-11 09:22 | Outpatient (CLI) | payer MEDICARE, MEDICAID, SELFPAY ==
[2018-05-15 16:05] VITALS: PULSE 32; RESP 16; O2SAT 100
[2018-08-11 10:34] LABS: Hemoglobin A1C% w Est Avg Glu 6.7 % (4.0-6.0)
== END ==
PROVIDERS: PCP Family Medicine; Visit Provider Family Medicine
DX: E11.9 Type 2 diabetes mellitus without complications (principal)
CPT/HCPCS: 36415; 83036

== ENCOUNTER → 2018-12-21 09:07 | Outpatient (CLI) | payer MEDICARE, MEDICAID, SELFPAY ==
[2018-05-15 16:05] VITALS: PULSE 32; RESP 16; O2SAT 100
[2018-12-21 09:57] LABS: Add Manual Diff / Slide Review NO; Basophils Absolute Auto 0 /uL (0-100); Basophils Percent Auto 0.7 % (0-2); Eosinophils Absolute Auto 100 /uL (0-450); Eosinophils Percent Auto 2.1 % (2-4); Hematocrit 40.4 % (41-53); Hemoglobin 14.3 g/dL (13.5-17.5); Lymphocytes Absolute Auto 1600 /uL (1100-4500); Lymphocytes Percent Auto 25.1 % (25-40); Mean Corpuscular HGB Conc 35.5 % (30-36); Mean Corpuscular Hemoglobin 31.5 PG (26-34); Mean Corpuscular Volume 88.7 fL (80-100); Monocytes Absolute Auto 400 /uL (0-900); Monocytes Percent Auto 6.8 % (3-14); Neutrophils Absolute Auto 4200 /uL (1500-7000); Neutrophils Percent Auto 65.3 % (50-75); Platelet Count 221 X10^3/uL (150-400); Red Blood Cell Count 4.55 X10^6/uL (4.5-5.9); Red Cell Distribution Width 12.6 % (11.6-14.8); White Blood Cell Count 6.4 X10^3/uL (4.5-11.0)
[2018-12-21 10:07] LABS: Hemoglobin A1C% w Est Avg Glu 6.1 % (4.0-6.0)
[2018-12-21 10:14] LABS: Alanine Aminotransferase 34 IU/L (21-72); Albumin 4.5 g/dL (3.5-5.0); Albumin Globulin Ratio 1.3 (1.0-2.8); Alkaline Phosphatase 51 U/L (38-126); Aspartate Aminotransferase 27 IU/L (17-59); BUN Creatinine Ratio 20.7 (6-22); Bilirubin Total 0.6 mg/dL (0.2-1.3); Blood Urea Nitrogen 29 mg/dL (9-20); Calcium 9.9 mg/dL (8.4-10.2); Carbon Dioxide 27 mmol/L (22-32); Chloride 102 mmol/L (98-107); Cholesterol 131 mg/dL (140-199); Estimated Glomerular Filt Rate 51.4 mL/min (>60); Globulin 3.4 g/dL (1.7-4.1); Glucose 120 mg/dL (80-110); HDL Cholesterol 35 mg/dL (40-60); HEMOLYSIS < 15 (0-50); LDL Cholesterol Calculated 70 mg/dL (<100); Potassium 3.9 mmol/L (3.4-5.1); Sodium 141 mmol/L (137-145); Total Protein 7.9 g/dL (6.3-8.2); Triglycerides 132 mg/dL (35-150)
[2018-12-21 11:03] LABS: Creatinine Urine Random 165.7 mg/dL
[2018-12-21 11:08] LABS: Microalbumi Creatinin Ratio Ur 92.3 ug/mg CR (<30); Microalbumin Urine Random 15.3 mg/dL (0-1.6)
== END ==
PROVIDERS: PCP Family Medicine; Visit Provider Family Medicine
DX: E11.9 Type 2 diabetes mellitus without complications (principal); I10 Essential (primary) hypertension
CPT/HCPCS: 36415; 80053; 80061; 82043; 82570; 83036; 84443; 85025

== ENCOUNTER → 2019-01-05 09:20 | Outpatient (CLI) | payer MEDICARE, MEDICAID, SELFPAY ==
[2018-05-15 16:05] VITALS: PULSE 32; RESP 16; O2SAT 100
--- NOTE | 2019-01-05 09:24 | DI.RAD.S_ITS ---
PROCEDURE: XR KNEE RT 3V INDICATIONS: right knee pain TECHNIQUE: 3 views of the knee were acquired. COMPARISON: [facility], , KNEE 3V RIGHT, 06/19/2011, 11:26. FINDINGS: Bones: No acute fracture or dislocation. There is mild superior and medial patellar osteophyte formation, which mildly is increased from comparison exam. There is severe patellar enthesopathy, which is similar to prior comparison exam. Soft tissues: There is a small right knee joint effusion. IMPRESSION: 1. Mild degenerative changes of the patellofemoral compartment of the right knee, mildly increased from comparison exam of 06/19/2011. 2. Right superior patellar enthesopathy, similar to comparison exam of 06/19/11. Dictated by: Robert Corbin M.D. on 01/05/2019 at 10:44 Approved by: Robert Corbin M.D. on 01/05/2019 at 11:00
== END ==
PROVIDERS: PCP Family Medicine; Visit Provider Family Medicine
DX: M25.561 Pain in right knee (principal); M17.11 Unilateral primary osteoarthritis, right knee; M76.51 Patellar tendinitis, right knee; M25.461 Effusion, right knee
CPT/HCPCS: 73562

== ENCOUNTER → 2019-08-08 09:51 | Outpatient (CLI) | payer MEDICARE, MEDICAID, SELFPAY ==
[2018-05-15 16:05] VITALS: PULSE 32; RESP 16; O2SAT 100
[2019-08-08 10:22] LABS: Add Manual Diff / Slide Review NO; Basophils Absolute Auto 0 /uL (0-100); Basophils Percent Auto 0.6 % (0-2); Eosinophils Absolute Auto 100 /uL (0-450); Hematocrit 38.7 % (41-53); Hemoglobin 13.7 g/dL (13.5-17.5); Lymphocytes Absolute Auto 1600 /uL (1100-4500); Lymphocytes Percent Auto 23.9 % (25-40); Mean Corpuscular HGB Conc 35.4 % (30-36); Mean Corpuscular Hemoglobin 31.6 PG (26-34); Mean Corpuscular Volume 89.4 fL (80-100); Monocytes Absolute Auto 400 /uL (0-900); Monocytes Percent Auto 6.7 % (3-14); Neutrophils Absolute Auto 4500 /uL (1500-7000); Neutrophils Percent Auto 66.8 % (50-75); Platelet Count 202 X10^3/uL (150-400); Red Blood Cell Count 4.32 X10^6/uL (4.5-5.9); Red Cell Distribution Width 12.7 % (11.6-14.8); White Blood Cell Count 6.7 X10^3/uL (4.5-11.0)
[2019-08-08 10:32] LABS: Hemoglobin A1C% w Est Avg Glu 6.3 % (4.0-6.0)
[2019-08-08 10:33] LABS: Alanine Aminotransferase 24 IU/L (<50); Albumin 4.4 g/dL (3.5-5.0); Albumin Globulin Ratio 1.6 (1.0-2.8); Alkaline Phosphatase 53 U/L (38-126); Aspartate Aminotransferase 30 IU/L (17-59); BUN Creatinine Ratio 11.4 (6-22); Bilirubin Total 0.3 mg/dL (0.2-1.3); Blood Urea Nitrogen 24 mg/dL (9-20); Calcium 9.5 mg/dL (8.4-10.2); Carbon Dioxide 29 mmol/L (22-32); Chloride 102 mmol/L (98-107); Estimated Glomerular Filt Rate 32.1 mL/min (>60); Globulin 2.8 g/dL (1.7-4.1); Glucose 124 mg/dL (80-110); HEMOLYSIS < 15 (0-50); Sodium 141 mmol/L (137-145); Total Protein 7.2 g/dL (6.3-8.2)
[2019-08-08 11:27] LABS: TSH w/ Reflex to FT4 0.89 uIU/mL (0.47-4.68)
[2019-08-08 11:52] LABS: Microalbumi Creatinin Ratio Ur 307.9 ug/mg CR (<30); Microalbumin Urine Random 65.9 mg/dL (0-1.6)
== END ==
PROVIDERS: PCP Family Medicine; Visit Provider Family Medicine
DX: E11.9 Type 2 diabetes mellitus without complications (principal); E78.5 Hyperlipidemia, unspecified; I10 Essential (primary) hypertension
CPT/HCPCS: 36415; 80053; 82043; 82570; 83036; 84443; 85025

== ENCOUNTER → 2019-08-11 06:36 | Outpatient (CLI) | payer MEDICARE, MEDICAID, SELFPAY ==
[2018-05-15 16:05] VITALS: PULSE 32; RESP 16; O2SAT 100
--- NOTE | 2019-08-11 06:38 | DI.US.S_ITS ---
PROCEDURE: US RENAL COMPLETE INDICATIONS: ACUTE RENAL FAILURE TECHNIQUE: Real-time scanning was performed of the kidneys and bladder, with image documentation. COMPARISON: [facility], US, ABDOMEN COMPLETE, 02/21/2010, 11:23. FINDINGS: Kidneys: Kidneys are normal in size. Right kidney measures 12.3 cm long; left kidney measures 12.1 cm long. Right renal cortical thickness is 1.7 cm; left renal cortical thickness is 1.6 cm. Renal cortical echotexture is mildly increased bilaterally. No hydronephrosis or nephrolithiasis. No suspicious solid mass lesions. Bilateral renal cysts, largest of which is on the right measuring up to 1.8 cm. Bladder: Pre-void bladder volume is 126 mL. Post-void residual is 0 mL. Pre-void images demonstrate no intraluminal masses or stones. On pre-void images, bilateral ureteral jets are noted with color Doppler interrogation. (Of note, ureteral jets may not be detectable in up to 25% of cases due to insufficient differences in specific gravity between ureteral and bladder urine). Miscellaneous: No free pelvic fluid. IMPRESSION: 1. Mild increase in renal cortical echogenicity bilaterally suggesting mild medical renal disease. 2. Bilateral simple renal cysts Dictated by: Phil Baldwin A Interpreted: Beata Jean MD on 08/11/2019 at 8:53 Approved by: Beata Jean MD, PhD on 08/11/2019 at 9:56
== END ==
PROVIDERS: PCP Family Medicine; Visit Provider Family Medicine
DX: N17.9 Acute kidney failure, unspecified (principal); N28.1 Cyst of kidney, acquired
CPT/HCPCS: 76770

== ENCOUNTER → 2019-08-16 08:42 | Outpatient (CLI) | payer MEDICARE, MEDICAID, SELFPAY ==
[2018-05-15 16:05] VITALS: PULSE 32; RESP 16; O2SAT 100
[2019-08-16 09:48] LABS: Blood Urea Nitrogen 28 mg/dL (9-20); Carbon Dioxide 30 mmol/L (22-32); Chloride 99 mmol/L (98-107); Estimated Glomerular Filt Rate 51.2 mL/min (>60); Glucose 146 mg/dL (80-110); HEMOLYSIS < 15 (0-50); Potassium 3.8 mmol/L (3.4-5.1); Sodium 139 mmol/L (137-145)
== END ==
PROVIDERS: PCP Family Medicine; Visit Provider Family Medicine
DX: N17.9 Acute kidney failure, unspecified (principal)
CPT/HCPCS: 36415; 80048

== ENCOUNTER → 2021-03-26 06:58 | Outpatient (CLI) | payer MEDICARE, MEDICAID, SELFPAY ==
[2018-05-15 16:05] VITALS: PULSE 32; RESP 16; O2SAT 100
[2021-03-26 08:24] LABS: Add Manual Diff / Slide Review NO; Basophils Absolute Auto 0 /uL (0-100); Basophils Percent Auto 0.6 % (0-2); Eosinophils Absolute Auto 200 /uL (0-450); Eosinophils Percent Auto 2.9 % (2-4); Hematocrit 39.6 % (41-53); Hemoglobin 13.9 g/dL (13.5-17.5); Lymphocytes Absolute Auto 1700 /uL (1100-4500); Lymphocytes Percent Auto 25.7 % (25-40); Mean Corpuscular HGB Conc 35.1 % (30-36); Mean Corpuscular Hemoglobin 31.2 PG (26-34); Mean Corpuscular Volume 88.8 fL (80-100); Monocytes Absolute Auto 400 /uL (0-900); Monocytes Percent Auto 6.1 % (3-14); Neutrophils Absolute Auto 4400 /uL (1500-7000); Neutrophils Percent Auto 64.7 % (50-75); Platelet Count 244 X10^3/uL (150-400); Red Blood Cell Count 4.45 X10^6/uL (4.5-5.9); Red Cell Distribution Width 13.1 % (11.6-14.8); White Blood Cell Count 6.8 X10^3/uL (4.5-11.0)
[2021-03-26 09:11] LABS: Creatinine Urine Random 193.4 mg/dL
[2021-03-26 09:26] LABS: HEMOLYSIS < 15 (0-50)
[2021-03-26 09:34] LABS: Alanine Aminotransferase 28 IU/L (<50); Albumin 4.3 g/dL (3.5-5.0); Albumin Globulin Ratio 1.3 (1.0-2.8); Alkaline Phosphatase 60 U/L (38-126); Aspartate Aminotransferase 31 IU/L (17-59); BUN Creatinine Ratio 16.2 (6-22); Bilirubin Total 0.6 mg/dL (0.2-1.3); Blood Urea Nitrogen 28 mg/dL (9-20); Calcium 9.9 mg/dL (8.4-10.2); Carbon Dioxide 28 mmol/L (22-32); Chloride 99 mmol/L (98-107); Cholesterol 155 mg/dL (140-199); Estimated Glomerular Filt Rate 39.8 mL/min (>60); Globulin 3.2 g/dL (1.7-4.1); Glucose 144 mg/dL (80-110); HDL Cholesterol 44 mg/dL (40-60); LDL Cholesterol Calculated 77 mg/dL (<100); Potassium 4.1 mmol/L (3.4-5.1); Sodium 140 mmol/L (137-145); Total Protein 7.5 g/dL (6.3-8.2); Triglycerides 170 mg/dL (35-150)
[2021-03-26 09:37] LABS: Thyroid Stimulating Hormone 1.73 uIU/mL (0.47-4.68)
[2021-03-26 10:21] LABS: Microalbumi Creatinin Ratio Ur 1151.4 ug/mg CR (<30); Microalbumin Urine Random 222.7 mg/dL (0-1.6)
[2021-03-26 16:10] LABS: Prostate Specific Antigen Scrn 3.59 ng/mL (0.1-4.0)
[2021-03-26 16:23] LABS: Hemoglobin A1C% w Est Avg Glu 6.6 % (4.0-6.0)
== END ==
PROVIDERS: PCP Family Medicine; Referring Provider Family Medicine; Visit Provider Family Medicine
DX: E11.9 Type 2 diabetes mellitus without complications (principal); Z12.5 Encounter for screening for malignant neoplasm of prostate; I10 Essential (primary) hypertension; N17.9 Acute kidney failure, unspecified
CPT/HCPCS: 36415; 80053; 80061; 82043; 82570; 83036; 84443; 85025; G0103

== ENCOUNTER → 2021-11-29 07:32 | Outpatient (CLI) | payer MEDICARE, MEDICAID, SELFPAY ==
[2018-05-15 16:05] VITALS: PULSE 32; RESP 16; O2SAT 100
[2021-11-29 10:09] LABS: BUN Creatinine Ratio 18.2 (6-22); Blood Urea Nitrogen 29 mg/dL (9-20); Calcium 9.5 mg/dL (8.4-10.2); Carbon Dioxide 32 mmol/L (22-32); Chloride 102 mmol/L (98-107); Estimated Glomerular Filt Rate 43.9 mL/min (>60); Glucose 155 mg/dL (80-110); HEMOLYSIS < 15 (0-50); Potassium 4.2 mmol/L (3.4-5.1); Sodium 140 mmol/L (137-145)
== END ==
PROVIDERS: PCP Family Medicine; Referring Provider Family Medicine; Visit Provider Family Medicine
DX: N18.9 Chronic kidney disease, unspecified (principal)
CPT/HCPCS: 36415; 80048

== ENCOUNTER 2022-02-22 10:43 | Emergency (ER) | payer MEDICARE, MEDICAID, SELFPAY ==
[2018-05-15 16:05] VITALS: PULSE 32; RESP 16; O2SAT 100
[2022-02-22] VITALS (14 sets, daily range): BP systolic 99–129; BP diastolic 67–91; PULSE 72–130; RESP 15–24; TEMP 36.8; O2SAT 94–99; BMI 29.3
--- NOTE | 2022-02-22 10:57 | DI.RAD.S_ITS ---
PROCEDURE: XR CHEST 1V INDICATIONS: chest pain TECHNIQUE: One view of the chest was acquired. COMPARISON: [facility], CR, XR CHEST 1V, 05/16/2018, 5:59. FINDINGS: Surgical changes and devices: None. Lungs and pleura: Lungs are clear. No pleural effusions or pneumothorax. Right lower lobe calcified granuloma stable Mediastinum: Mediastinal contours appear normal. Heart size is normal. Atherosclerotic vascular calcification noted in the aortic arch. Bones and chest wall: No suspicious bony lesions. Overlying soft tissues appear unremarkable. IMPRESSION: No acute cardiopulmonary findings Approved by: Jose Brooks M.D. on 02/22/2022 at 10:29
[2022-02-22 11:22] LABS: Add Manual Diff / Slide Review NO; Basophils Absolute Auto 100 /uL (0-100); Basophils Percent Auto 1.1 % (0-2); Eosinophils Absolute Auto 200 /uL (0-450); Eosinophils Percent Auto 2.7 % (2-4); Hematocrit 40.2 % (41-53); Hemoglobin 14.4 g/dL (13.5-17.5); Lymphocytes Absolute Auto 1900 /uL (1100-4500); Lymphocytes Percent Auto 24.1 % (25-40); Mean Corpuscular HGB Conc 35.7 % (30-36); Mean Corpuscular Volume 86.7 fL (80-100); Monocytes Absolute Auto 600 /uL (0-900); Monocytes Percent Auto 7.8 % (3-14); Neutrophils Absolute Auto 5200 /uL (1500-7000); Neutrophils Percent Auto 64.3 % (50-75); Platelet Count 256 X10^3/uL (150-400); Red Blood Cell Count 4.63 X10^6/uL (4.5-5.9); Red Cell Distribution Width 13.1 % (11.6-14.8); White Blood Cell Count 8.1 X10^3/uL (4.5-11.0)
[2022-02-22 11:34] LABS: Alanine Aminotransferase 29 IU/L (<50); Albumin 4.5 g/dL (3.5-5.0); Albumin Globulin Ratio 1.3 (1.0-2.8); Alkaline Phosphatase 56 U/L (38-126); Aspartate Aminotransferase 37 IU/L (17-59); BUN Creatinine Ratio 14.7 (6-22); Bilirubin Total 0.6 mg/dL (0.2-1.3); Blood Urea Nitrogen 32 mg/dL (9-20); Calcium 9.2 mg/dL (8.4-10.2); Carbon Dioxide 23 mmol/L (22-32); Chloride 99 mmol/L (98-107); Creatine Kinase 230 U/L (55-170); Estimated Glomerular Filt Rate 33 mL/min (>60); Globulin 3.4 g/dL (1.7-4.1); Glucose 223 mg/dL (80-110); HEMOLYSIS 29 (0-50); Lipase 323 U/L (23-300); Magnesium 1.7 mg/dL (1.6-2.3); Potassium 4.5 mmol/L (3.4-5.1); Sodium 136 mmol/L (137-145); Total Protein 7.9 g/dL (6.3-8.2)
[2022-02-22] MEDS: dilTIAZem 5 MG/ML SDV 10 MG IV (11:39)
[2022-02-22 11:45] LABS: Troponin I 0.028 ng/mL (0.01-0.034)
[2022-02-22 11:49] LABS: CKMB % Relative Index 0.7 % (1.5-5.0)
--- NOTE | 2022-02-22 12:27 | ED_ITS ---
HPI - Arrhythmia/Palpitations General Chief Complaint: Arrhythmia/Palpitations Stated Complaint: Heart rate over 130, low BP Time Seen by Provider: 02/22/22 11:01 Source: patient Mode of arrival: Family Vehicle History of Present Illness HPI narrative: Patient is a 67-year-old male history of hypertension, diabetes, prolonged QT, presents today with elevated heart rate. He walks 2 miles yesterday he had no issue. Today he did yoga his constantly remind him to check his blood pressure so after yoga he checked his blood pressure and they found his heart rate to be elevated in the 130s. He denies any palpitations shortness of breath or chest discomfort. He is completely asymptomatic now. He has no orthopnea fever chills or cough. Related Data Home Medications Medication Instructions Recorded Confirmed ASPIRIN (Aspir-Low) 81 mg PO QDAY #0 03/16/12 07/22/21 cholecalciferol (vitamin D3) 10 400 unit PO QDAY #0 10/06/17 07/22/21 mcg (400 unit) capsule (Vitamin D3) multivitamin (Multiple Vitamins) 1 tab PO QDAY #0 10/06/17 07/22/21 pyridoxine (vitamin B6) 100 mg 100 mg PO QPM #0 10/06/17 07/22/21 tablet vitamin E 1,000 unit capsule 1,000 unit PO QDAY #0 10/06/17 07/22/21 Previous Rx's Medication Instructions Recorded acetaminophen 300 mg-codeine 30 mg 1 tab PO BID #30 tab 07/08/16 tablet blood-glucose meter (Accu-Chek #1 each 06/01/18 Guide Glucose Meter) psyllium husk 0.4 gram capsule 0.4 gram PO DAILY #30 cap 12/20/18 (Fiber (psyllium husk)) DISABLED PARKING PERMIT #1 each 01/11/19 lancets (Accu-Chek Softclix See Rx Instructions .ROUTE 04/27/20 Lancets) .COMPLEX #100 unspecified metformin 1,000 mg tablet See Rx Instructions .ROUTE 03/08/21 .COMPLEX #180 tab fluoxetine 40 mg capsule See Rx Instructions .ROUTE 06/27/21 .COMPLEX #90 capsule atorvastatin 20 mg tablet (Lipitor) 20 mg PO BEDTIME #90 tab 07/22/21 albuterol sulfate 90 mcg/actuation See Rx Instructions .ROUTE 10/28/21 aerosol inhaler (Ventolin HFA) .COMPLEX #18 gram losartan 100 mg tablet See Rx Instructions .ROUTE 11/19/21 .COMPLEX #90 tab doxazosin 4 mg tablet 4 mg PO DAILY #90 tab 12/10/21 hydrochlorothiazide 25 mg tablet 25 mg PO DAILY #90 tab 12/10/21 lurasidone 20 mg tablet (Latuda) See Rx Instructions .ROUTE 12/30/21 .COMPLEX #30 tab metoprolol tartrate 50 mg tablet See Rx Instructions .ROUTE 12/30/21 .COMPLEX #60 tab amlodipine 10 mg tablet 10 mg PO DAILY #90 tab 02/10/22 trazodone 50 mg tablet See Rx Instructions .ROUTE 02/20/22 .COMPLEX #30 tab apixaban 5 mg tablet (Eliquis) 5 mg PO BID #60 tab 02/22/22 metoprolol tartrate 75 mg tablet 75 mg PO BID #60 tab 02/22/22 Allergies Allergy/AdvReac Type Severity Reaction Status Date / Time smallpox vaccine,live Allergy Mild Verified 07/22/21 09:12 [SMALLPOX VACCINE,LIVE] Review of Systems Review of Systems Narrative: GENERAL: Denies chills, fatigue, malaise, fever, sweats, travel HEENT: Denies sinus pain, ear pain, sore throat, difficulty swallowing, neck pain RESPIRATORY: Denies dyspnea, cough, wheezing, hemoptysis, sputum. CARDIOVASCULAR: See HPI GASTROINTESTINAL: Denies nausea, vomiting, abdominal pain, diarrhea, constipation, melena. : Denies dysuria, frequency, incontinence, hematuria, urinary retention, flank pain. MUSCULOSKELETAL: Denies weakness, joint pain, or bony pain SKIN: No rash, no erythema, no pruritus NEUROLOGIC: Denies weakness, dizziness, headache, numbness, change in speech, confusion PSYCHIATRIC: No concerning psychosocial issues. 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) Anxiety Attention deficit disorder Bipolar disorder Cervical radiculopathy due to osteoarthritis of spine (10/13/13) Cervical spondylitis with radiculitis Cervical spondylosis with radiculopathy Cervical stenosis of spinal canal Chronic diastolic heart failure (01/14/17) Controlled type 2 diabetes mellitus (06/17/11) Essential hypertension (06/17/11) History of hepatitis C virus infection (01/19/18) Hypertension Polypharmacy Prolonged QT interval Schizophrenia Traumatic brain injury (06/17/11) Type 2 diabetes mellitus without complication, without long-term current use of insulin (01/14/17) Surgical History Status post laminectomy Social History household members: spouse and children Smoking Status: Never smoker Smoking Status: Never smoker alcohol intake frequency: 0-2 drinks per day Substance Use Type: does not use Exam Initial Vital Signs Initial Vital Signs: Vital Signs Pulse Rate 129 H 02/22/22 10:54 Respiratory Rate 19 02/22/22 10:54 Pulse Oximetry 98 02/22/22 10:54 GENERAL: Alert well-appearing 67-year-old male HEENT: Head atraumatic,EOMI, pupils reactive, face symmetric, [moist] mucous membranes CARDIOVASCULAR: Irregularly irregular tachycardic no murmur RESPIRATORY: Breath sounds equal bilaterally, no wheezes rales or rhonchi. ABDOMEN: Soft, nontender. Normoactive bowel sounds all 4 quadrants. No guarding or rebound. EXTREMITIES: Normal range of motion, no clubbing or edema. Neurovascularly intact NEUROLOGICAL: Alert and oriented x4.Normal gait and speech SKIN: Warm, dry, no laceration, no petechiae, no rashes or lesions. Scores CHADS-VASc Congestive heart failure: yes Hypertension: yes Age 75 years or older: no Diabetes mellitus: yes Stroke, TIA, or TE: no Vascular disease: no Age 65 to 74 years: yes Sex category (female): Male CHADS-VASc Score: 4 Course Orders Ordered: ED Orders 02/22/22 11:09 D Dimer Stat 02/22/22 11:10 BNP [NT-proBNP (BNP-Adult 18+)] Stat Complete Blood Count AUTO DIFF Stat Comprehensive Metabolic Panel Stat Lipase Stat Magnesium Stat Troponin & CK Cardiac Panel Stat Discontinued Medications Apixaban (Apixaban 5 Mg Tablet) 5 mg PO NOW ONE Stop: 02/22/22 14:08 Last Admin: 02/22/22 14:23 Dose: 5 mg Documented by: DEREK Diltiazem HCl (Diltiazem 5 Mg/Ml Sdv) 10 mg IV NOW ONE Stop: 02/22/22 11:24 Last Admin: 02/22/22 11:39 Dose: 10 mg Documented by: CHRIS Metoprolol Tartrate (Metoprolol Ir 25 Mg Tablet) 25 mg PO NOW ONE Stop: 02/22/22 14:08 Last Admin: 02/22/22 14:23 Dose: 25 mg Documented by: DEREK Vital Signs Vital signs: Vital Signs - 8 hr 02/22/22 12:00 02/22/22 12:30 02/22/22 13:00 Pulse Rate 72 108 H 78 Respiratory Rate 15 18 22 Blood Pressure 114/85 114/67 126/81 Pulse Oximetry 95 96 96 02/22/22 13:30 02/22/22 14:00 02/22/22 14:27 Pulse Rate 81 121 H 115 H Respiratory Rate 18 15 24 Blood Pressure 114/73 99/76 108/79 Pulse Oximetry 96 96 96 02/22/22 14:30 02/22/22 14:51 Pulse Rate 112 H 84 Respiratory Rate 24 18 Blood Pressure 120/76 Pulse Oximetry 96 97 MDM - Arrhythmia/Palpitations Lab Data Result diagrams: 02/22/22 11:10 02/22/22 11:10 Labs: Lab Results 02/22/22 02/22/22 02/22/22 Range/Units 11:09 11:10 11:10 WBC 8.1 (4.5-11.0) X10^3/uL RBC 4.63 (4.5-5.9) X10^6/uL Hgb 14.4 (13.5-17.5) g/dL Hct 40.2 L (41-53) % MCV 86.7 (80-100) fL MCH 31.0 (26-34) PG MCHC 35.7 (30-36) % RDW 13.1 (11.6-14.8) % Plt Count 256 (150-400) X10^3/uL Neut % (Auto) 64.3 (50-75) % Lymph % (Auto) 24.1 L (25-40) % [place] % (Auto) 7.8 (3-14) % Eos % (Auto) 2.7 (2-4) % Baso % (Auto) 1.1 (0-2) % Neut # (Auto) 5200 (0023-9146) /uL Lymph # (Auto) 1900 (6752-3321) /uL [place] # (Auto) 600 (0-900) /uL Eos # (Auto) 200 (0-450) /uL Baso # (Auto) 100 (0-100) /uL D-Dimer < 200 (<230) ng/mL Sodium 136 L (137-145) mmol/L Potassium 4.5 (3.4-5.1) mmol/L Chloride 99 (98-107) mmol/L Carbon Dioxide 23 (22-32) mmol/L BUN 32 H (9-20) mg/dL Creatinine 2.18 H (0.66-1.25) mg/dL Estimated GFR 33 L (>60) mL/min BUN/Creatinine Ratio 14.7 (6-22) Glucose 223 H (80-110) mg/dL Calcium 9.2 (8.4-10.2) mg/dL Magnesium 1.7 (1.6-2.3) mg/dL Total Bilirubin 0.6 (0.2-1.3) mg/dL AST 37 (17-59) IU/L ALT 29 (<50) IU/L Alkaline Phosphatase 56 (38-126) U/L Total Creatine Kinase 230 H (55-170) U/L CK-MB (CK-2) 1.70 (<2.37) ng/mL CK-MB (CK-2) Rel Index 0.7 L (1.5-5.0) % Troponin I 0.028 (0.01-0.034) ng/mL NT-Pro-B Natriuret Pep (<125) pg/mL Total Protein 7.9 (6.3-8.2) g/dL Albumin 4.5 (3.5-5.0) g/dL Globulin 3.4 (1.7-4.1) g/dL Albumin/Globulin Ratio 1.3 (1.0-2.8) Lipase 323 H (23-300) U/L 02/22/22 Range/Units 11:10 WBC (4.5-11.0) X10^3/uL RBC (4.5-5.9) X10^6/uL Hgb (13.5-17.5) g/dL Hct (41-53) % MCV (80-100) fL MCH (26-34) PG MCHC (30-36) % RDW (11.6-14.8) % Plt Count (150-400) X10^3/uL Neut % (Auto) (50-75) % Lymph % (Auto) (25-40) % [place] % (Auto) (3-14) % Eos % (Auto) (2-4) % Baso % (Auto) (0-2) % Neut # (Auto) (4693-6218) /uL Lymph # (Auto) (1619-2316) /uL [place] # (Auto) (0-900) /uL Eos # (Auto) (0-450) /uL Baso # (Auto) (0-100) /uL D-Dimer (<230) ng/mL Sodium (137-145) mmol/L Potassium (3.4-5.1) mmol/L Chloride (98-107) mmol/L Carbon Dioxide (22-32) mmol/L BUN (9-20) mg/dL Creatinine (0.66-1.25) mg/dL Estimated GFR (>60) mL/min BUN/Creatinine Ratio (6-22) Glucose (80-110) mg/dL Calcium (8.4-10.2) mg/dL Magnesium (1.6-2.3) mg/dL Total Bilirubin (0.2-1.3) mg/dL AST (17-59) IU/L ALT (<50) IU/L Alkaline Phosphatase (38-126) U/L Total Creatine Kinase (55-170) U/L CK-MB (CK-2) (<2.37) ng/mL CK-MB (CK-2) Rel Index (1.5-5.0) % Troponin I (0.01-0.034) ng/mL NT-Pro-B Natriuret Pep 2980 H (<125) pg/mL Total Protein (6.3-8.2) g/dL Albumin (3.5-5.0) g/dL Globulin (1.7-4.1) g/dL Albumin/Globulin Ratio (1.0-2.8) Lipase (23-300) U/L Imaging Data Chest x-ray: Radiologist's Impresson: [address] [address] XRay Report Signed 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 Procedure: XR chest 1V Ordering Provider: Lynn Lynn D.O. PROCEDURE:? XR CHEST 1V ? INDICATIONS:? chest pain ? TECHNIQUE:? One view of the chest was acquired.? ? COMPARISON:? [facility], CR, XR CHEST 1V, 05/16/2018, 5:59. ? FINDINGS:? ? Surgical changes and devices:? None.? ? Lungs and pleura:? Lungs are clear.? No pleural effusions or pneumothorax.? Right lower lobe calcified granuloma stable ? Mediastinum:? Mediastinal contours appear normal.? Heart size is normal.? Atherosclerotic vascular calcification noted in the aortic arch. ? Bones and chest wall:? No suspicious bony lesions.? Overlying soft tissues appear unremarkable.? ? IMPRESSION:? No acute cardiopulmonary findings ? ? ? ECG Data Interpretation: Atrial flutter rate 129 2:1 conduction block new from previous EKG MDM Narrative Medical decision making narrative: Patient is found to be in atrial flutter with all 2: 1 block. Rate slows down with diltiazem. Patient has absolutely no shortness of breath. Creatinine is increased slightly from previous today 2.1 previously 1.5. BNP is also found to be elevated at 2000. He has no symptoms of congestive heart failure. I suspect he has probably been in atrial flutter for some time and is asymptomatic. He is not a candidate for cardioversion. Prior EKG show bradycardia with heart rate of 35 an accidental overdose 1400 Dr. Long on-call for patient's PCP update patient's symptoms test results agrees that patient can be discharged on Eliquis stopping aspirin increasing metoprolol 75 mg b.i.d. he is aware that patient has been previously [facility] but that was an accidental overdose in 2018. Patient is given a dose of metoprolol in the ED and 1st dose of Eliquis. Education on anticoagulation. HAS-BLED Score for Major Bleeding Risk from [email or web address] on 02/22/2022 All calculations should be rechecked by clinician prior to use RESULT SUMMARY: 3 points Risk was 5.8% in one validation study (Jeana 2010) and 3.72 bleeds per 100 patie nt-years in another validation study ([employer] 2010). Alternatives to anticoagulation should be considered: Patient is at high risk for major bleeding. INPUTS: Hypertension ?> 1 = Yes Renal disease ?> 1 = Yes Liver disease ?> 0 = No Stroke history ?> 0 = No Prior major bleeding or predisposition to bleeding ?> 0 = No Labile INR ?> 0 = No Age >65 ?> 1 = Yes Medication usage predisposing to bleeding ?> 0 = No Alcohol use ?> 0 = No Discharge Plan Departure Patient Disposition: Home Clinical Impression: Atrial flutter Instructions: DI for Atrial Flutter Activity Restrictions/Additional Instructions: *You have been diagnosed with new onset atrial flutter *What to do: At this time recommend increasing some your medications. You will need further workup such as an echocardiogram with Dr. Parra. Please call on Thursday to schedule appointment. On-call Dr. Long has been made aware. *Continue to take medications as directed--> SENT TO [facility] STOP TAKING ASPIRIN Start taking Eliquis 5 mg twice a day-this is a blood thinner will bleed while taking this Increase metoprolol to 75 mg twice a day, start this evening *Follow up with your primary care provider in 2-3 days or call [phone] *Return to ER if you should have increasing shortness of breath, chest palpitations, chest pain dizziness or any new, worsening or concerning symptoms Prescriptions: New Eliquis 5 mg tablet 5 mg PO BID Qty: 60 0RF metoprolol tartrate 75 mg tablet 75 mg PO BID Qty: 60 0RF No Action atorvastatin [Lipitor] 20 mg tablet 20 mg PO BEDTIME Qty: 90 3RF acetaminophen-codeine 300-30 mg tablet 1 tab PO BID Qty: 30 0RF ASPIRIN (Aspir-Low) 81 mg PO QDAY Qty: 0 0RF multivitamin [Multiple Vitamins] 1 EACH tablet 1 tab PO QDAY Qty: 0 0RF vitamin E 1,000 UNIT capsule 1,000 unit PO QDAY Qty: 0 0RF cholecalciferol (vitamin D3) [Vitamin D3] 400 UNIT capsule 400 unit PO QDAY Qty: 0 0RF pyridoxine (vitamin B6) 100 MG tablet 100 mg PO QPM Qty: 0 0RF lancets [Accu-Chek Softclix Lancets] [facility] [place] .[place] .COMPLEX Qty: 100 3RF Dose Instruction: Test blood glucose once daily Rx Instructions: Test blood glucose once daily metformin 1,000 mg tablet See Rx Instructions .ROUTE .COMPLEX Qty: 180 3RF Dose Instruction: TAKE ONE TABLET BY MOUTH TWICE DAILY Rx Instructions: TAKE ONE TABLET BY MOUTH TWICE DAILY fluoxetine 40 mg capsule See Rx Instructions .ROUTE .COMPLEX Qty: 90 3RF Dose Instruction: Take one capsule by mouth one time daily Rx Instructions: Take one capsule by mouth one time daily albuterol sulfate [Ventolin HFA] 90 mcg/actuation HFA aerosol inhaler See Rx Instructions .ROUTE .COMPLEX Qty: 18 11RF Dose Instruction: Inhale two puffs by mouth every four hours as needed for shortness of breath or wheezing. Rx Instructions: Inhale two puffs by mouth every four hours as needed for shortness of breath or wheezing. losartan 100 mg tablet See Rx Instructions .ROUTE .COMPLEX Qty: 90 3RF Dose Instruction: TAKE ONE TABLET BY MOUTH ONE TIME DAILY Rx Instructions: TAKE ONE TABLET BY MOUTH ONE TIME DAILY doxazosin 4 mg tablet 4 mg PO DAILY Qty: 90 3RF hydrochlorothiazide 25 mg tablet 25 mg PO DAILY Qty: 90 3RF Rx Instructions: 25 mg PO daily; Latuda 20 mg tablet See Rx Instructions .ROUTE .COMPLEX Qty: 30 5RF Dose Instruction: TAKE 1 TABLET BY MOUTH ONCE DAILY WITH DINNER Rx Instructions: TAKE 1 TABLET BY MOUTH ONCE DAILY WITH DINNER metoprolol tartrate 50 mg tablet See Rx Instructions .ROUTE .COMPLEX Qty: 60 5RF Dose Instruction: TAKE ONE TABLET BY MOUTH TWICE DAILY Rx Instructions: TAKE ONE TABLET BY MOUTH TWICE DAILY amlodipine 10 mg tablet 10 mg PO DAILY Qty: 90 1RF trazodone 50 mg tablet See Rx Instructions .ROUTE .COMPLEX Qty: 30 2RF Dose Instruction: TAKE 1/2 TO 1 TABLET BY MOUTH AT BEDTIME NEEDED FOR INSOMNIA. Rx Instructions: TAKE 1/2 TO 1 TABLET BY MOUTH AT BEDTIME NEEDED FOR INSOMNIA. (DME) blood-glucose meter [Accu-Chek Guide Glucose Meter] [facility] [place] See Dose Instructions .ROUTE .MEDSUPPLY Qty: 1 0RF Dose Instruction: As directed Rx Instructions: As directed psyllium husk [Fiber (psyllium husk)] 0.4 gram capsule 0.4 gram PO DAILY Qty: 30 1RF (DME) DISABLED PARKING PERMIT 0 .ROUTE .MEDSUPPLY Qty: 1 0RF Rx Instructions: I find this patient to be medically disabled and qualified for disabled parking as indicated, and signed, on the accompanying Disabled Parking Application for Individuals. Referrals: Harlan Parra MD [Primary Care Provider] -
[2022-02-22 12:52] LABS: NT-proBNP (BNP-Adult 18+) 2980 pg/mL (<125)
[2022-02-22 14:16] LABS: D Dimer < 200 ng/mL (<230)
[2022-02-22] MEDS: METOPROLOL IR 25 MG TABLET PO (14:23)
[2022-02-22] MEDS: APIXABAN 5 MG TABLET PO (14:23)
== END 2022-02-22 15:07 | disposition home or self-care (01) ==
PROVIDERS: Emergency Provider Emergency Medicine; PCP Family Medicine
DX: I48.92 Unspecified atrial flutter (principal); R07.9 Chest pain, unspecified
CPT/HCPCS: 36415; 71045; 80053; 82550; 82553; 83690; 83735; 83880; 84484; 85025; 85379; 93005; 93010; 96374; 99284

== ENCOUNTER → 2022-02-25 10:06 | Outpatient (CLI) | payer MEDICARE, MEDICAID, SELFPAY ==
[2018-05-15 16:05] VITALS: PULSE 32; RESP 16; O2SAT 100
[2022-02-25 11:35] LABS: Hemoglobin A1C% w Est Avg Glu 7.4 % (4.0-6.0)
[2022-02-25 11:54] LABS: Blood Urea Nitrogen 33 mg/dL (9-20); Calcium 10.1 mg/dL (8.4-10.2); Carbon Dioxide 31 mmol/L (22-32); Chloride 101 mmol/L (98-107); Creatine Kinase 148 U/L (55-170); Estimated Glomerular Filt Rate 43 mL/min (>60); Glucose 137 mg/dL (80-110); HEMOLYSIS < 15 (0-50); Lipase 435 U/L (23-300); Potassium 4.1 mmol/L (3.4-5.1); Sodium 142 mmol/L (137-145)
[2022-02-25 12:03] LABS: NT-proBNP (BNP-Adult 18+) 170 pg/mL (<125)
== END ==
PROVIDERS: PCP Family Medicine; Referring Provider Physician Assistant; Visit Provider Physician Assistant
DX: N18.9 Chronic kidney disease, unspecified (principal); E11.65 Type 2 diabetes mellitus with hyperglycemia; I10 Essential (primary) hypertension; R79.89 Other specified abnormal findings of blood chemistry; R74.8 Abnormal levels of other serum enzymes
CPT/HCPCS: 36415; 80048; 82550; 83036; 83690; 83880

== ENCOUNTER 2022-03-05 16:25 | Emergency (ER) | payer MEDICARE, MEDICAID, SELFPAY ==
[2018-05-15 16:05] VITALS: PULSE 32; RESP 16; O2SAT 100
[2022-03-05] VITALS (11 sets, daily range): BP systolic 174–197; BP diastolic 78–91; PULSE 49–55; RESP 13–26; TEMP 36.6; O2SAT 93–98; BMI 30.7
--- NOTE | 2022-03-05 20:28 | ED.GENADULT ---
HPI - General Adult General Chief complaint: Hypertension Stated complaint: HIGH BLOOD PRESSURE Time Seen by Provider: 03/05/22 20:19 Source: patient and family Mode of arrival: Ambulatory History of Present Illness HPI narrative: 67-year-old gentleman with history of hypertension, hyperlipidemia, diabetes, schizophrenia and diagnosed with new onset atrial flutter last week on February 22. He was started on Eliquis and metoprolol was added at that time. He has some minor acute kidney injury it looks like his creatinine typically runs in the 1.6-1.7 range with the episode of atrial fibrillation it had bumped up to 2.1 but in follow-up is down to 1.7. He states that he took his blood pressure medications at 3:30 a.m. in the afternoon rather than 430 in the afternoon because he was concerned about his blood pressure. He has been regularly checking afternoon blood pressures after the atrial fibrillation episode. He noted that the number was high today which causes him significant concern. He is otherwise completely asymptomatic. No headaches, orthopnea, dyspnea, chest pain, palpitations, abdominal pain, lower extremity edema. Related Data Home Medications Medication Instructions Recorded Confirmed cholecalciferol (vitamin D3) 10 400 unit PO QDAY #0 10/06/17 02/25/22 mcg (400 unit) capsule (Vitamin D3) multivitamin (Multiple Vitamins) 1 tab PO QDAY #0 10/06/17 02/25/22 pyridoxine (vitamin B6) 100 mg 100 mg PO QPM #0 10/06/17 02/25/22 tablet vitamin E 1,000 unit capsule 1,000 unit PO QDAY #0 10/06/17 02/25/22 Previous Rx's Medication Instructions Recorded acetaminophen 300 mg-codeine 30 mg 1 tab PO BID #30 tab 07/08/16 tablet blood-glucose meter (Accu-Chek #1 each 06/01/18 Guide Glucose Meter) psyllium husk 0.4 gram capsule 0.4 gram PO DAILY #30 cap 12/20/18 (Fiber (psyllium husk)) DISABLED PARKING PERMIT #1 each 01/11/19 lancets (Accu-Chek Softclix See Rx Instructions .ROUTE 04/27/20 Lancets) .COMPLEX #100 unspecified metformin 1,000 mg tablet See Rx Instructions .ROUTE 03/08/21 .COMPLEX #180 tab fluoxetine 40 mg capsule See Rx Instructions .ROUTE 06/27/21 .COMPLEX #90 capsule atorvastatin 20 mg tablet (Lipitor) 20 mg PO BEDTIME #90 tab 07/22/21 losartan 100 mg tablet See Rx Instructions .ROUTE 11/19/21 .COMPLEX #90 tab doxazosin 4 mg tablet 4 mg PO DAILY #90 tab 12/10/21 hydrochlorothiazide 25 mg tablet 25 mg PO DAILY #90 tab 12/10/21 lurasidone 20 mg tablet (Latuda) See Rx Instructions .ROUTE 12/30/21 .COMPLEX #30 tab amlodipine 10 mg tablet 10 mg PO DAILY #90 tab 02/10/22 trazodone 50 mg tablet See Rx Instructions .ROUTE 02/20/22 .COMPLEX #30 tab apixaban 5 mg tablet (Eliquis) 5 mg PO BID #60 tab 02/22/22 metoprolol tartrate 75 mg tablet 75 mg PO BID #60 tab 02/22/22 inhalational spacing device #1 ea 02/25/22 levalbuterol tartrate 45 2 puff INHALATION Q4-6H PRN #15 g 02/25/22 mcg/actuation aerosol inhaler Allergies Allergy/AdvReac Type Severity Reaction Status Date / Time smallpox vaccine,live Allergy Mild Verified 02/25/22 09:11 [SMALLPOX VACCINE,LIVE] Review of Systems Review of Systems Narrative: Remainder of complete review of systems is otherwise unremarkable except for that included in the HPI. Patient History Medical History Amphetamine abuse (06/17/11) Anxiety Attention deficit disorder Bipolar disorder Cervical radiculopathy due to osteoarthritis of spine (10/13/13) Cervical spondylosis with radiculopathy Cervical stenosis of spinal canal Chronic diastolic heart failure (01/14/17) Chronic kidney disease Controlled type 2 diabetes mellitus (06/17/11) Essential hypertension (06/17/11) History of hepatitis C virus infection (01/19/18) Polypharmacy Prolonged QT interval Schizophrenia Traumatic brain injury (06/17/11) Surgical History Status post laminectomy Social History household members: spouse and children Smoking Status: Never smoker Smoking Status: Never smoker alcohol intake frequency: 0-2 drinks per day Substance Use Type: does not use Exam Initial Vital Signs Initial Vital Signs: Vital Signs Temperature 98 F 03/05/22 16:43 Pulse Rate 55 L 03/05/22 16:43 Respiratory Rate 18 03/05/22 16:43 Blood Pressure 197/91 H 03/05/22 16:43 Pulse Oximetry 96 03/05/22 16:43 General: Healthy appearing, in no acute distress. Able to give a complete and coherent history. Well-nourished well-developed HEENT: Moist mucous membranes, normal sclera with reactive pupils, Neck: No JVD, supple Respiratory: Lungs are clear to auscultation, no wheezing no rales no rhonchi. Full and symmetrical air movement Cardiac: Regular rate and rhythm no murmurs no bruits Abdomen: Soft, nontender, good bowel tones, no flank pain Skin: Warm and dry, no rashes Neurologic: Grossly neurologically intact with no obvious asymmetries or abnormalities Extremities: No trauma, well perfused Psych: Cooperative, appropriate insight and affect Course Orders Ordered: Discontinued Medications Amlodipine Besylate (Amlodipine 5 Mg Tablet) 10 mg PO NOW ONE Stop: 03/05/22 20:38 Last Admin: 03/05/22 20:43 Dose: 10 mg Documented by: WILSON Vital Signs Vital signs: Vital Signs - 8 hr 03/05/22 16:43 03/05/22 20:15 03/05/22 20:30 Temperature 98 F Pulse Rate 55 L 54 L 50 L Respiratory Rate 18 24 21 Blood Pressure 197/91 H 189/90 H 187/86 H Pulse Oximetry 96 98 96 03/05/22 20:45 03/05/22 21:00 03/05/22 21:15 Temperature Pulse Rate 53 L 49 L 52 L Respiratory Rate 21 17 18 Blood Pressure 189/91 H 176/85 H 174/86 H Pulse Oximetry 97 96 97 03/05/22 21:30 03/05/22 21:33 03/05/22 21:45 Temperature Pulse Rate 49 L 50 L 52 L Respiratory Rate 16 13 16 Blood Pressure 191/86 H 182/78 H Pulse Oximetry 96 95 97 03/05/22 22:00 Temperature Pulse Rate 50 L Respiratory Rate 26 H Blood Pressure 179/85 H Pulse Oximetry 93 Medical Decision Making ECG Data Interpretation: Sinus Puma at a rate of 51 Normal intervals and normal axis No acute ischemic changes MDM Narrative Medical decision making narrative: 67-year-old gentleman concerned with isolated elevated blood pressure this afternoon. EKG is unremarkable. He is otherwise asymptomatic. Recent blood work has been done and at this point I do not think we need to repeat another full workup in light of his otherwise asymptomatic presentation. There is no evidence of heart failure or infection. Will go ahead and give him an additional dose of 10 mg of amlodipine and observe in the emergency department for brief period of time. On re-evaluation, patient remains completely asymptomatic. Knee additional 10 mg of amlodipine did not dramatically influence his blood pressure but it is not continuing to increase. Discussed the importance of following blood pressure but also unit in terms of a long-term management problem. Recommended return to the emergency department for elevated blood pressures only if symptomatic as well. I did ask that they follow-up with her primary care physician if numbers are still elevated after he has been able to have a good night sleep this evening. At this point he is safe for discharge home Discharge Plan Departure Patient Disposition: Home Clinical Impression: Hypertension Qualifiers: Hypertension type: primary hypertension Qualified Code(s): I10 - Essential (primary) hypertension Instructions: DI for High Blood Pressure Activity Restrictions/Additional Instructions: Thank you for coming in today I am glad that you are paying attention to blood pressures. Today even though the blood pressure was elevated the fact that there were no additional symptoms suggesting stroke, heart attack, additional heart strain or recurrent atrial fibrillation means that we need to give blood pressure medications a chance to work. You were given an extra dose of your amlodipine evening. Your blood pressure is no longer trending up. At this time, I would recommend that you go ahead and go home, trying get a good night's sleep and take her usual morning medications. I would recommend checking blood pressures about 2 hours after you take medications. If the numbers are still high, please contact your primary care doctor. Prescriptions: No Action atorvastatin [Lipitor] 20 mg tablet 20 mg PO BEDTIME Qty: 90 3RF acetaminophen-codeine 300-30 mg tablet 1 tab PO BID Qty: 30 0RF levalbuterol tartrate 45 mcg/actuation HFA aerosol inhaler 2 puff inhalation Q4-6H PRN (Reason: shortness of breath or wheezing) Qty: 15 6RF (DME) inhalational spacing device Spacer See Rx Instructions .Route Qty: 1 3RF Rx Instructions: As directed multivitamin [Multiple Vitamins] 1 EACH tablet 1 tab PO QDAY Qty: 0 0RF vitamin E 1,000 UNIT capsule 1,000 unit PO QDAY Qty: 0 0RF cholecalciferol (vitamin D3) [Vitamin D3] 400 UNIT capsule 400 unit PO QDAY Qty: 0 0RF pyridoxine (vitamin B6) 100 MG tablet 100 mg PO QPM Qty: 0 0RF lancets [Accu-Chek Softclix Lancets] [facility] [place] See Rx Instructions .ROUTE .COMPLEX Qty: 100 3RF Dose Instruction: Test blood glucose once daily Rx Instructions: Test blood glucose once daily metformin 1,000 mg tablet See Rx Instructions .ROUTE .COMPLEX Qty: 180 3RF Dose Instruction: TAKE ONE TABLET BY MOUTH TWICE DAILY Rx Instructions: TAKE ONE TABLET BY MOUTH TWICE DAILY fluoxetine 40 mg capsule See Rx Instructions .ROUTE .COMPLEX Qty: 90 3RF Dose Instruction: Take one capsule by mouth one time daily Rx Instructions: Take one capsule by mouth one time daily losartan 100 mg tablet See Rx Instructions .ROUTE .COMPLEX Qty: 90 3RF Dose Instruction: TAKE ONE TABLET BY MOUTH ONE TIME DAILY Rx Instructions: TAKE ONE TABLET BY MOUTH ONE TIME DAILY doxazosin 4 mg tablet 4 mg PO DAILY Qty: 90 3RF hydrochlorothiazide 25 mg tablet 25 mg PO DAILY Qty: 90 3RF Rx Instructions: 25 mg PO daily; Latuda 20 mg tablet See Rx Instructions .ROUTE .COMPLEX Qty: 30 5RF Dose Instruction: TAKE 1 TABLET BY MOUTH ONCE DAILY WITH DINNER Rx Instructions: TAKE 1 TABLET BY MOUTH ONCE DAILY WITH DINNER amlodipine 10 mg tablet 10 mg PO DAILY Qty: 90 1RF trazodone 50 mg tablet See Rx Instructions .ROUTE .COMPLEX Qty: 30 2RF Dose Instruction: TAKE 1/2 TO 1 TABLET BY MOUTH AT BEDTIME NEEDED FOR INSOMNIA. Rx Instructions: TAKE 1/2 TO 1 TABLET BY MOUTH AT BEDTIME NEEDED FOR INSOMNIA. (DME) blood-glucose meter [Accu-Chek Guide Glucose Meter] [facility] [place] See Dose Instructions .ROUTE .MEDSUPPLY Qty: 1 0RF Dose Instruction: As directed Rx Instructions: As directed psyllium husk [Fiber (psyllium husk)] 0.4 gram capsule 0.4 gram PO DAILY Qty: 30 1RF (DME) DISABLED PARKING PERMIT 0 .ROUTE .MEDSUPPLY Qty: 1 0RF Rx Instructions: I find this patient to be medically disabled and qualified for disabled parking as indicated, and signed, on the accompanying Disabled Parking Application for Individuals. Eliquis 5 mg tablet 5 mg PO BID Qty: 60 0RF metoprolol tartrate 75 mg tablet 75 mg PO BID Qty: 60 0RF Referrals: Harlan Parra MD [Primary Care Provider] -
[2022-03-05] MEDS: AMLODIPINE 5 MG TABLET 10 MG PO (20:43)
== END 2022-03-05 22:24 | disposition home or self-care (01) ==
PROVIDERS: Emergency Provider Emergency Medicine; PCP Family Medicine
DX: I10 Essential (primary) hypertension (principal)
CPT/HCPCS: 93005; 99283

== ENCOUNTER → 2022-03-18 09:36 | Outpatient (CLI) | payer MEDICARE, MEDICAID, SELFPAY ==
[2018-05-15 16:05] VITALS: PULSE 32; RESP 16; O2SAT 100
--- NOTE | 2022-03-18 09:37 | DI.US.S_ITS ---
PROCEDURE: US ABDOMEN COMPLETE INDICATIONS: Elevated lipase TECHNIQUE: Real-time scanning was performed of the abdominal and retroperitoneal organs, with image documentation. COMPARISON: [facility], US, ABDOMEN COMPLETE, 02/21/2010, 11:23. [facility], US, US RENAL COMPLETE, 08/11/2019, 19:07. FINDINGS: Liver: The liver demonstrates slightly increased size. The liver demonstrates generalized mildly increased echogenicity. This decreases ultrasound sensitivity for detection of hepatic masses. Likely fatty sparing can be seen adjacent to the gallbladder. Gallbladder: No findings of gallstones or sludge are seen. The gallbladder wall is not thickened, measuring 3 mm or less. No specific pericholecystic fluid is seen. The sonographic De Jesus sign is negative. Biliary ducts: Intrahepatic bile ducts are non-dilated. Extrahepatic bile duct caliber measures 4 mm. Normal is 6-7 mm or less in diameter, or 10 mm or less post-cholecystectomy. Pancreas: The pancreas appears slightly heterogeneous, yet is otherwise unremarkable. Spleen: Spleen is normal in size and homogeneous in echotexture. Kidneys: Kidneys are normal in size and echotexture. Right kidney measures 12.7 cm long; left kidney measures 13.9 cm long. No solid masses. The kidneys demonstrate a heterogeneous appearance, with multiple echogenic foci. The largest can be seen within the lower pole of the right kidney measuring 5 mm. No definite associated shadowing can be seen. Several small cysts are seen, with the largest seen along the right mid kidney measuring up to 2.3 cm. No hydronephrosis is seen. Aorta: Visualized aorta is normal in caliber at less than 3 cm. The aorta is not well seen, secondary to overlying bowel gas. Iliacs: Proximal common iliac arteries are normal in caliber at less than 2.5 cm. IVC: Intrahepatic inferior vena cava is patent. Miscellaneous: No free abdominal fluid. IMPRESSION: Heterogeneous appearing pancreas, without a focal abnormality. Mildly enlarged liver, with fatty infiltration. Echogenic foci are seen within the kidneys, which are likely related to artifact, although differential diagnosis includes small stones. Small bilateral renal cysts are seen. Dictated by: Cheikh Gagnon M.D. on 03/18/2022 at 11:48 Approved by: Cheikh Gagnon M.D. on 03/18/2022 at 11:52
== END ==
PROVIDERS: PCP Family Medicine; Referring Provider Physician Assistant; Visit Provider Physician Assistant
DX: K76.0 Fatty (change of) liver, not elsewhere classified (principal); N28.1 Cyst of kidney, acquired; R74.8 Abnormal levels of other serum enzymes
CPT/HCPCS: 76700

== ENCOUNTER → 2022-04-08 07:38 | Outpatient (CLI) | payer MEDICARE, MEDICAID, SELFPAY ==
[2018-05-15 16:05] VITALS: PULSE 32; RESP 16; O2SAT 100
--- NOTE | 2022-04-08 07:39 | DI.ECHO.S_ITS ---
[facility] +---------+ : : [address] : : : : [id number] : : : : Phone: [phone]+ Echocardiogram Report + + :Name: ROEL QUIGLEY Study Date: 04/08/2022 Height: 66 in : :[facility] ReadingLocation: Weight: 178 lb : : Gender: Male BSA: 1.9 m2 : :: 1955 Age: 67 yrs BP: 166/86 mmHg: :Reason For Study: ATRIAL FLUTTER, HX DIASTOLIC HEART FAILURE : :Ordering Physician: OZ, : :AUDREY Matthews Performed By: Gayathri Mccauley : :Referring: AUDREY CLINTON : + + Interpretation Summary The ejection fraction is estimated to be 60-65%. Diastolic function is indeterminate. The left atrium is mildly dilated. The right ventricle is normal in size and function. No significant valvular abnormalities. Unable to estimate PASP. Slightly dilated ascending aorta. Compared to the prior study dated 12/19/2016, no significant change. Procedure: A two-dimensional transthoracic echocardiogram with color flow and Doppler was performed. The study quality was technically adequate. Comparison is made with the echocardiogram of 12/19/2016. The patient had occasional PVCs during the exam. The patient was in sinus bradycardia with heart rates between 45-50 bpm during the exam. Left Ventricle: The left ventricle is normal in size and wall thickness. The ejection fraction is estimated to be 60-65%. Diastolic function is indeterminate. Right Ventricle: The right ventricle is normal in size and function. Atria: The left atrium is mildly dilated. Right atrial size is normal. There is no Doppler evidence for an interatrial shunt. Mitral Valve: The mitral valve is normal in structure and function. There is trace mitral regurgitation. Aortic Valve: The aortic valve is trileaflet. The aortic valve opens well. There is no aortic valve stenosis. There is trace aortic regurgitation. Tricuspid Valve: The tricuspid valve is normal in structure and function. There is trace tricuspid regurgitation. Pulmonic Valve: The pulmonic valve leaflets are thin and pliable; valve motion is normal. There is mild pulmonic regurgitation. Great Vessels: The aortic root is normal size. The ascending aorta is at the upper limits of normal in size. The IVC is of normal diameter and collapses greater than 50% with a sniff. This suggests a low right atrial pressure of 3 mm Hg. Pericardium/ Pleura There is no pericardial effusion. There is no pleural effusion. MMode/2D Measurements & Calculations LVIDd: 5.6 cm LVOT diam: 2.2 cm LVIDs: 3.4 cm Ao root diam: 3.4 cm FS: 39.5 % asc Aorta Diam: 3.8 cm EPSS: 0.86 cm Ao Arch Diam (Prox Trans): 2.8 cm IVSd: 1.0 cm LVPWd: 1.0 cm LV gautam. diameter/BSA (cm/m^2): 2.9 LV sys. diameter/BSA (cm/m^2): 1.8 LA A2 area: 26.7 cm2 RA long axis: 5.0 cm LA A4 area: 23.7 cm2 RA area: 16.1 cm2 LA length (vol): 6.2 cm RA vol: 43.9 ml LA vol: 86.9 ml RA : 23.1 ml/m2 LA vol index: 45.6 ml/m2 IVC diam: 1.3 cm RVD1 (basal): 3.9 cm RVD2 (mid): 3.2 cm TAPSE: 2.7 cm Doppler Measurements & Calculations Ao V2 max: 142.5 cm/sec LVOT Max James: 93.4 cm/sec Ao V2 mean: 96.1 cm/sec LV V1 max P.5 mmHg Ao max P.1 mmHg LV V1 VTI: 26.8 cm Ao mean P.2 mmHg MOHAN(I,D): 2.8 cm2 Ao V2 VTI: 35.9 cm MOHAN(V,D): 2.5 cm2 sev ratio: 0.75 MOHAN indexed to BSA (cm^2/m^2): 1.5 MV E max james: 76.3 cm/sec PA V2 max: 105.4 cm/sec MV A max james: 90.7 cm/sec PA V2 mean: 71.5 cm/sec MV E/A: 0.84 PA mean P.2 mmHg Med Peak E' James: 7.0 cm/sec PA pr(Accel): 32.8 mmHg E/E' med: 10.9 Lat Peak E' James: 6.7 cm/sec E/E' lat: 11.4 E/e' average: 11.1 MV dec time: 0.27 sec SV(LVOT): 101.6 ml Reading Physician:11:39 AM
== END ==
PROVIDERS: PCP Family Medicine; Referring Provider Physician Assistant; Visit Provider Physician Assistant
DX: I48.92 Unspecified atrial flutter (principal); I50.32 Chronic diastolic (congestive) heart failure; I51.7 Cardiomegaly
CPT/HCPCS: 93306

== ENCOUNTER → 2022-12-22 07:33 | Outpatient (CLI) | payer MEDICARE, MEDICAID, SELFPAY ==
[2018-05-15 16:05] VITALS: PULSE 32; RESP 16; O2SAT 100
[2022-12-22 08:16] LABS: Add Manual Diff / Slide Review NO; Basophils Absolute Auto 0 /uL (0-100); Basophils Percent Auto 0.7 % (0-2); Eosinophils Absolute Auto 200 /uL (0-450); Eosinophils Percent Auto 3.4 % (2-4); Hematocrit 36.9 % (41-53); Hemoglobin 12.7 g/dL (13.5-17.5); Lymphocytes Absolute Auto 1400 /uL (1100-4500); Lymphocytes Percent Auto 22.2 % (25-40); Mean Corpuscular HGB Conc 34.4 % (30-36); Mean Corpuscular Hemoglobin 30.2 PG (26-34); Mean Corpuscular Volume 87.7 fL (80-100); Monocytes Absolute Auto 500 /uL (0-900); Neutrophils Absolute Auto 4300 /uL (1500-7000); Neutrophils Percent Auto 66.7 % (50-75); Platelet Count 234 X10^3/uL (150-400); White Blood Cell Count 6.4 X10^3/uL (4.5-11.0)
[2022-12-22 08:26] LABS: Hemoglobin A1C% w Est Avg Glu 7.1 % (4.0-6.0)
[2022-12-22 08:50] LABS: Alanine Aminotransferase 22 IU/L (<50); Albumin 4.2 g/dL (3.5-5.0); Albumin Globulin Ratio 1.4 (1.0-2.8); Alkaline Phosphatase 52 U/L (38-126); Aspartate Aminotransferase 23 IU/L (17-59); BUN Creatinine Ratio 16.3 (6-22); Bilirubin Total 0.4 mg/dL (0.2-1.3); Blood Urea Nitrogen 26 mg/dL (9-20); Calcium 9.3 mg/dL (8.4-10.2); Carbon Dioxide 31 mmol/L (22-32); Chloride 101 mmol/L (98-107); Cholesterol 170 mg/dL (140-199); Estimated Glomerular Filt Rate 47 mL/min (>60); Globulin 3.1 g/dL (1.7-4.1); Glucose 140 mg/dL (80-110); HDL Cholesterol 39 mg/dL (40-60); HEMOLYSIS < 15 (0-50); LDL Cholesterol Calculated 98 mg/dL (<100); Potassium 4.2 mmol/L (3.4-5.1); Sodium 140 mmol/L (137-145); Total Protein 7.3 g/dL (6.3-8.2); Triglycerides 163 mg/dL (35-150)
[2022-12-22 08:52] LABS: Creatinine Urine Random 77.9 mg/dL
[2022-12-22 09:26] LABS: Microalbumi Creatinin Ratio Ur 1169.4 ug/mg CR (<30); Microalbumin Urine Random 91.1 mg/dL (0-1.6)
[2022-12-23 11:09] LABS: Fecal Immunochemical Test NEGATIVE
== END ==
PROVIDERS: PCP Family Medicine; Referring Provider Family Medicine; Visit Provider Family Medicine
DX: I10 Essential (primary) hypertension (principal); E11.9 Type 2 diabetes mellitus without complications; Z12.11 Encounter for screening for malignant neoplasm of colon; N18.9 Chronic kidney disease, unspecified
CPT/HCPCS: 36415; 80053; 80061; 82043; 82274; 82570; 83036; 85025

== ENCOUNTER → 2023-06-15 06:59 | Outpatient (CLI) | payer MEDICARE, MEDICAID, SELFPAY ==
[2018-05-15 16:05] VITALS: PULSE 32; RESP 16; O2SAT 100
[2023-06-15 09:11] LABS: Hemoglobin A1C% w Est Avg Glu 6.1 % (4.0-6.0)
[2023-06-15 12:16] LABS: Microalbumi Creatinin Ratio Ur 570.9 ug/mg CR (<30); Microalbumin Urine Random 70.8 mg/dL (0-1.6)
== END ==
PROVIDERS: PCP Family Medicine; Referring Provider Family Medicine; Visit Provider Family Medicine
DX: E11.9 Type 2 diabetes mellitus without complications (principal); I10 Essential (primary) hypertension; N18.9 Chronic kidney disease, unspecified
CPT/HCPCS: 36415; 82043; 82570; 83036

== ENCOUNTER → 2023-06-23 08:36 | Outpatient (CLI) | payer MEDICARE, MEDICAID, SELFPAY ==
[2018-05-15 16:05] VITALS: PULSE 32; RESP 16; O2SAT 100
--- NOTE | 2023-06-23 08:37 | DI.RAD.S_ITS ---
PROCEDURE: XR KNEE RT 3V INDICATIONS: chronic right knee pain TECHNIQUE: 3 views of the knee were acquired. COMPARISON: [facility], , XR KNEE RT 3V, 01/05/2019, 9:28. FINDINGS: Bones: No fractures or dislocations. No suspicious bony lesions. Mild medial compartment joint space narrowing Soft tissues: No joint effusion. No suspicious soft tissue calcifications. IMPRESSION: Mild medial compartment joint space narrowing Approved by: Jose Brooks M.D. on 06/23/2023 at 19:19
== END ==
PROVIDERS: PCP Family Medicine; Referring Provider Family Medicine; Visit Provider Family Medicine
DX: G89.29 Other chronic pain; M25.561 Pain in right knee
CPT/HCPCS: 73562

== ENCOUNTER → 2023-12-16 08:04 | Outpatient (CLI) | payer MEDICARE, MEDICAID, SELFPAY ==
[2018-05-15 16:05] VITALS: PULSE 32; RESP 16; O2SAT 100
[2023-12-16 09:01] LABS: Add Manual Diff / Slide Review NO; Basophils Absolute Auto 0 /uL (0-100); Basophils Percent Auto 0.5 % (0-2); Eosinophils Absolute Auto 200 /uL (0-450); Eosinophils Percent Auto 3.6 % (2-4); Hematocrit 36.4 % (41-53); Hemoglobin 12.9 g/dL (13.5-17.5); Lymphocytes Absolute Auto 1300 /uL (1100-4500); Lymphocytes Percent Auto 18.8 % (25-40); Mean Corpuscular HGB Conc 35.4 % (30-36); Mean Corpuscular Hemoglobin 31.1 PG (26-34); Mean Corpuscular Volume 87.9 fL (80-100); Monocytes Absolute Auto 500 /uL (0-900); Neutrophils Absolute Auto 4700 /uL (1500-7000); Neutrophils Percent Auto 70.1 % (50-75); Platelet Count 225 X10^3/uL (150-400); Red Blood Cell Count 4.14 X10^6/uL (4.5-5.9); Red Cell Distribution Width 12.5 % (11.6-14.8); White Blood Cell Count 6.8 X10^3/uL (4.5-11.0)
[2023-12-16 09:12] LABS: Hemoglobin A1C% w Est Avg Glu 6.4 % (4.0-6.0)
[2023-12-16 09:30] LABS: Alanine Aminotransferase 18 IU/L (<50); Albumin 4.1 g/dL (3.5-5.0); Albumin Globulin Ratio 1.4 (1.0-2.8); Alkaline Phosphatase 54 U/L (38-126); Aspartate Aminotransferase 22 IU/L (17-59); BUN Creatinine Ratio 21.9 (6-22); Bilirubin Total 0.5 mg/dL (0.2-1.3); Blood Urea Nitrogen 42 mg/dL (9-20); Calcium 9.6 mg/dL (8.4-10.2); Carbon Dioxide 28 mmol/L (22-32); Chloride 105 mmol/L (98-107); Cholesterol 147 mg/dL (140-199); Estimated Glomerular Filt Rate 38 mL/min (>60); Glucose 142 mg/dL (80-110); HDL Cholesterol 43 mg/dL (40-60); HEMOLYSIS < 15 (0-50); LDL Cholesterol Calculated 79 mg/dL (<100); Sodium 141 mmol/L (137-145); Total Protein 7.1 g/dL (6.3-8.2); Triglycerides 123 mg/dL (35-150)
[2023-12-16 09:55] LABS: TSH w/ Reflex to FT4 1.89 uIU/mL (0.47-4.68)
[2023-12-16 10:49] LABS: Creatinine Urine Random 75.1 mg/dL
[2023-12-16 11:17] LABS: Microalbumi Creatinin Ratio Ur 1400.7 ug/mg CR (<30); Microalbumin Urine Random 105.2 mg/dL (0-1.6)
== END ==
PROVIDERS: PCP Family Medicine; Referring Provider Family Medicine; Visit Provider Family Medicine
DX: E11.9 Type 2 diabetes mellitus without complications (principal); I50.32 Chronic diastolic (congestive) heart failure; N18.9 Chronic kidney disease, unspecified; E11.69 Type 2 diabetes mellitus with other specified complication; E78.5 Hyperlipidemia, unspecified
CPT/HCPCS: 36415; 80053; 80061; 82043; 82570; 83036; 84443; 85025

== ENCOUNTER → 2023-12-28 09:06 | Outpatient (CLI) | payer MEDICARE, MEDICAID, SELFPAY ==
[2018-05-15 16:05] VITALS: PULSE 32; RESP 16; O2SAT 100
== END ==
LOC: CAR 09:07
PROVIDERS: PCP Family Medicine; Referring Provider Family Medicine; Visit Provider Family Medicine
DX: I48.91 Unspecified atrial fibrillation (principal); I48.92 Unspecified atrial flutter
CPT/HCPCS: 93246

== ENCOUNTER → 2024-06-15 07:25 | Outpatient (CLI) | payer MEDICARE, MEDICAID, SELFPAY ==
[2018-05-15 16:05] VITALS: PULSE 32; RESP 16; O2SAT 100
[2024-06-15 09:46] LABS: BUN Creatinine Ratio 19.4 (6-22); Blood Urea Nitrogen 48 mg/dL (9-20); Calcium 9.7 mg/dL (8.4-10.2); Carbon Dioxide 25 mmol/L (22-32); Chloride 104 mmol/L (98-107); Estimated Glomerular Filt Rate 28 mL/min (>60); Glucose 149 mg/dL (80-110); HEMOLYSIS < 15 (0-50); Potassium 4.4 mmol/L (3.4-5.1); Sodium 139 mmol/L (137-145)
[2024-06-15 14:34] LABS: Hemoglobin A1C% w Est Avg Glu 6.2 % (4.0-6.0)
== END ==
PROVIDERS: PCP Family Medicine; Referring Provider Family Medicine; Visit Provider Family Medicine
DX: E11.36 Type 2 diabetes mellitus with diabetic cataract (principal)
CPT/HCPCS: 36415; 80048; 83036

== ENCOUNTER → 2024-06-27 07:17 | Outpatient (CLI) | payer MEDICARE, MEDICAID, SELFPAY ==
[2018-05-15 16:05] VITALS: PULSE 32; RESP 16; O2SAT 100
[2024-06-27 08:31] LABS: BUN Creatinine Ratio 18.5 (6-22); Blood Urea Nitrogen 44 mg/dL (9-20); Calcium 9.2 mg/dL (8.4-10.2); Carbon Dioxide 23 mmol/L (22-32); Chloride 103 mmol/L (98-107); Estimated Glomerular Filt Rate 29 mL/min (>60); Glucose 138 mg/dL (80-110); HEMOLYSIS < 15 (0-50); Potassium 3.9 mmol/L (3.4-5.1); Sodium 138 mmol/L (137-145)
== END ==
PROVIDERS: PCP Family Medicine; Referring Provider Family Medicine; Visit Provider Family Medicine
DX: S06.9XAD Unspecified intracranial injury with loss of consciousness status unknown, subsequent encounter (principal); N18.32 Chronic kidney disease, stage 3b
CPT/HCPCS: 36415; 80048

== ENCOUNTER → 2024-12-08 06:51 | Outpatient (CLI) | payer MEDICARE, MEDICAID, SELFPAY ==
[2018-05-15 16:05] VITALS: PULSE 32; RESP 16; O2SAT 100
[2024-12-08 08:59] LABS: Alanine Aminotransferase 21 IU/L (<50); Albumin 4.5 g/dL (3.5-5.0); Albumin Globulin Ratio 1.6 (1.0-2.8); Alkaline Phosphatase 66 U/L (38-126); Aspartate Aminotransferase 25 IU/L (17-59); BUN Creatinine Ratio 14.6 (6-22); Bilirubin Total 0.7 mg/dL (0.2-1.3); Blood Urea Nitrogen 37 mg/dL (9-20); Calcium 9.6 mg/dL (8.4-10.2); Carbon Dioxide 25 mmol/L (22-32); Chloride 104 mmol/L (98-107); Cholesterol 137 mg/dL (140-199); Estimated Glomerular Filt Rate 27 mL/min (>60); Globulin 2.9 g/dL (1.7-4.1); Glucose 158 mg/dL (80-110); HDL Cholesterol 40 mg/dL (40-60); HEMOLYSIS < 15 (0-50); LDL Cholesterol Calculated 72 mg/dL (<100); Potassium 4.6 mmol/L (3.4-5.1); Sodium 140 mmol/L (137-145); Total Protein 7.4 g/dL (6.3-8.2); Triglycerides 124 mg/dL (35-150)
== END ==
PROVIDERS: PCP Family Medicine; Referring Provider Family Medicine; Visit Provider Family Medicine
DX: E11.9 Type 2 diabetes mellitus without complications (principal); S06.9XAD Unspecified intracranial injury with loss of consciousness status unknown, subsequent encounter; N18.32 Chronic kidney disease, stage 3b; I50.32 Chronic diastolic (congestive) heart failure
CPT/HCPCS: 36415; 80053; 80061

== ENCOUNTER → 2025-04-06 09:23 | Outpatient (CLI) | payer MEDICARE, MEDICAID, SELFPAY ==
[2018-05-15 16:05] VITALS: PULSE 32; RESP 16; O2SAT 100
--- NOTE | 2025-04-06 09:24 | DI.RAD.S_ITS ---
PROCEDURE: XR SHOULDER RT MIN 2V INDICATIONS: rt shoulder TECHNIQUE: 3 views of the shoulder were acquired. COMPARISON: None. FINDINGS: Bones: No fractures or dislocations. No suspicious bony lesions. Visualized ribs appear intact. Glenohumeral and acromioclavicular joint space narrowing with associated osteophytosis. Soft tissues: No suspicious soft tissue calcifications. IMPRESSION: Moderate shoulder osteoarthritis. Dictated by: Todd Nguyen M.D. on 04/06/2025 at 15:44 Approved by: Todd Nguyen M.D. on 04/06/2025 at 15:44
[2025-04-06 10:04] LABS: Add Manual Diff / Slide Review NO; Hematocrit 38.4 % (41-53); Hemoglobin 13.3 g/dL (13.5-17.5); Lymphocytes Absolute Auto 1300 /uL (1100-4500); Mean Corpuscular HGB Conc 34.6 % (30-36); Mean Corpuscular Hemoglobin 30.5 PG (26-34); Mean Corpuscular Volume 88.3 fL (80-100); Platelet Count 241 X10^3/uL (150-400)
[2025-04-06 10:17] LABS: Hemoglobin A1C% w Est Avg Glu 6.7 % (4.0-6.0)
[2025-04-06 12:08] LABS: Blood Urea Nitrogen 46 mg/dL (9-20); Calcium 9.5 mg/dL (8.4-10.2); Carbon Dioxide 26 mmol/L (22-32); Chloride 104 mmol/L (98-107); Estimated Glomerular Filt Rate 29 mL/min (>60); Glucose 127 mg/dL (70-99); HEMOLYSIS < 15 (0-50); Potassium 4.5 mmol/L (3.4-5.1); Sodium 142 mmol/L (137-145)
== END ==
PROVIDERS: PCP Family Medicine; Referring Provider Family Medicine; Visit Provider Family Medicine
DX: M19.011 Primary osteoarthritis, right shoulder (principal); M25.511 Pain in right shoulder; E11.22 Type 2 diabetes mellitus with diabetic chronic kidney disease; N18.32 Chronic kidney disease, stage 3b; I48.91 Unspecified atrial fibrillation; E11.69 Type 2 diabetes mellitus with other specified complication; E78.5 Hyperlipidemia, unspecified; I50.32 Chronic diastolic (congestive) heart failure
CPT/HCPCS: 36415; 73030; 80048; 83036; 85025

== ENCOUNTER → 2025-07-18 07:33 | Outpatient (CLI) | payer MEDICARE, MEDICAID, SELFPAY ==
[2018-05-15 16:05] VITALS: PULSE 32; RESP 16; O2SAT 100
--- NOTE | 2025-08-04 10:42 | DIAB.INIT ---
Initial Diabetes Education Assessment Name: [employer] MarkerDavid Date: 07/18/25 Time: 8-830am Dx: Types II Diabetes with CKD Provider: Aida Preferred Learning Style: Reading, Doing, Listening, Watching Abilio presents for initial Dm visit. PMH of DM x 14 years per report. Maternal FH of DM. Recently rx'd insulin. has not started yet. Needs review of administration of insulin. Plans to d/c Metformin d/t CKD. Endorses stress with life and state of the world. Possibly some depression per report. Has questions about when and how to take insulin. Eye appt: Last year Anthropometrics: Ht: 66 Wt: 190# 07/2025 Weight history: Physical Activity: Tries to walk 2mi when he can per report. 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 Self-Monitoring Blood Glucose: None currently. Has meter and supplies per report. Date Pre Post Pre Post Pre Post HS Diabetes Medications: 20u Glargine-- not started yet 1000mg Metformin BID-- d/c Pertinent Labs: HgA1c: 6.7% 04/2025 GFR: 29 L Past Medical History: (Last Updated 01/22/23 @ 14:01 by Harlan Parra MD) Amphetamine abuse (06/17/11) Anxiety Attention deficit disorder Bipolar disorder Cervical radiculopathy due to osteoarthritis of spine (10/13/13) Cervical spondylosis with radiculopathy Cervical stenosis of spinal canal Chronic diastolic heart failure (01/14/17) Chronic kidney disease Controlled type 2 diabetes mellitus (06/17/11) Essential hypertension (06/17/11) History of hepatitis C virus infection (01/19/18) Polypharmacy Prolonged QT interval Schizophrenia Traumatic brain injury (06/17/11) Intervention: This participant was very receptive. Provided appropriate educational handouts. Discussed the following topics: Completed intake assessment. Insulin injection demonstration and return demo Insulin storage, injection locations, precautions, rule of 15 review Created SMART goals for patient self-care and success. Goals: Call pharmacy about insulin Take q AM Start FBG checks Follow-up: VIKTOR TIMMONS follow-up in 2-3 weeks Ella Santiago RDN, SHANELLE Certified Diabetes Care and Event Promotions Coordinator P: [phone] Thank you for this referral
== END ==
LOC: DIET 07:33
PROVIDERS: PCP Family Medicine; Referring Provider Family Medicine
DX: E11.22 Type 2 diabetes mellitus with diabetic chronic kidney disease (principal); N18.9 Chronic kidney disease, unspecified; Z71.3 Dietary counseling and surveillance; Z83.3 Family history of diabetes mellitus
CPT/HCPCS: G0108

== ENCOUNTER → 2025-08-04 10:41 | Outpatient (CLI) | payer MEDICARE, MEDICAID, SELFPAY ==
[2018-05-15 16:05] VITALS: PULSE 32; RESP 16; O2SAT 100
--- NOTE | 2025-08-04 10:51 | DIAB.MNT ---
Initial Diabetes Medical Nutrition Therapy Assessment Name: Retail Support AssociateDavid Date: 08/04/25 Time: Dx: Types II Diabetes with CKD Provider: Aida Knox presents for Dm visit. PMH of DM x 14 years per report. Maternal FH of DM. Started insulin, d/c of Metformin. Reports some difficulty with remember info. Today we made notes and used handouts to help with retention of info. Today he brought a few questions regarding BG checks and insulin injections. Wants to know when to check BG, about priming pen needle, technique questions for injection, and what to do when little insulin is left in a pen. Also, states his wants to know if he can try Ozempic. Encouraged him to discuss GLP1 with provider prn. He agreed. Reports high CHO intake with fruit and juice. Diet recall: wake: 3a 7-8a: sandwich ham or turkey with 1 orange, 4-5 pieces peaches in syrup, 5-7 strawberries 10-11a: PBJ or PB and butter with fruits 3p: Adobo or Bella Bella with 1c rice water 24-32oz juice: 24oz infrequent regular soda Anthropometrics: Ht: 66 Wt: 190# 07/2025 Weight history: Physical Activity: Tries to walk 2mi when he can per report. 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 Self-Monitoring Blood Glucose: Elevated BG, however has improved more recently. Date Pre Post Pre Post Pre Post HS 07/29 352 07/30 291 422 173 07/31 145 08/01 08/02 08/03 174 08/04 203 Diabetes Medications: 20u Glargine 1000mg Metformin BID-- d/c Pertinent Labs: HgA1c: 6.7% 04/2025 GFR: 29 L Past Medical History: (Last Updated 01/22/23 @ 14:01 by Harlan Parra MD) Amphetamine abuse (06/17/11) Anxiety Attention deficit disorder Bipolar disorder Cervical radiculopathy due to osteoarthritis of spine (10/13/13) Cervical spondylosis with radiculopathy Cervical stenosis of spinal canal Chronic diastolic heart failure (01/14/17) Chronic kidney disease Controlled type 2 diabetes mellitus (06/17/11) Essential hypertension (06/17/11) History of hepatitis C virus infection (01/19/18) Polypharmacy Prolonged QT interval Schizophrenia Traumatic brain injury (06/17/11) Intervention: This participant was very receptive. Provided appropriate educational handouts. Discussed the following topics: Encouraged FBG checks daily Briefly discussed Dm meds with CKD Reviewed priming pen and insulin injection technique and leftover insulin Reviewed macronutrients Discussed portions and substitutes and spreading out CHO intake Discouraged sweetened beverages Created SMART goals for patient self-care and success. Goals: Call pharmacy about insulin- met Take q day- met Start FBG checks- met Chec FBG daily- new Look for peaches in juice vs syrup- new Try sf juice- new Spread out fruit intake- new Follow-up: VIKTOR TIMMONS follow-up in 2-3 weeks Ella Santiago RDN, SHANELLE Certified Diabetes Care and Tip Banding Machine Operator P: [phone] Thank you for this referral
== END ==
LOC: DIET 10:42
PROVIDERS: PCP Family Medicine; Referring Provider Family Medicine
DX: E11.22 Type 2 diabetes mellitus with diabetic chronic kidney disease (principal); Z71.3 Dietary counseling and surveillance; Z79.4 Long term (current) use of insulin
CPT/HCPCS: 97802

== ENCOUNTER → 2025-08-25 08:32 | Outpatient (CLI) | payer MEDICARE, MEDICAID, SELFPAY ==
[2018-05-15 16:05] VITALS: PULSE 32; RESP 16; O2SAT 100
--- NOTE | 2025-08-25 09:01 | DIAB.MNTFU ---
Follow-up Diabetes Medical Nutrition Therapy Assessment Name: Mobile Sales ConsultantDavid daiman Date: 08/25/25 Time: 9-915am Dx: Types II Diabetes with CKD Provider: Aida Knox presents for Dm visit. PMH of DM x 14 years per report. Maternal FH of DM. Continues on 20u glargine. Saw PCP. 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 Reports low fluid intake some days. Aims for fluids earlier in the day vs later due to evening excessive urination. Switched to sf juice. D/c of fruit in syrup per report. Diet recall: wake: 3a 530a: sandwich ham or turkey with 1 orange 10-11a: PBJ or PB and butter with fruit 3p: Adobo or Bella Bella with 1c rice Anthropometrics: Ht: 66 Wt: 190# 07/2025 Weight history: Physical Activity: Tries to walk 2mi when he can per report, about 2x per week. 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 Yoga inconsistently. Self-Monitoring Blood Glucose: Improved FBG. 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) Anxiety Attention deficit disorder Bipolar disorder Cervical radiculopathy due to osteoarthritis of spine (10/13/13) Cervical spondylosis with radiculopathy Cervical stenosis of spinal canal Chronic diastolic heart failure (01/14/17) Chronic kidney disease Controlled type 2 diabetes mellitus (06/17/11) Essential hypertension (06/17/11) History of hepatitis C virus infection (01/19/18) Polypharmacy Prolonged QT interval Schizophrenia Traumatic brain injury (06/17/11) Nutrition Rx: Plate Method Nutrition Diagnosis: - Predicted inadequate fluid intake r/t some days reduced intake and excessive urination aeb pt report and CKD dx - Physical inactivity r/t weather dependent walking aeb pt report Intervention: This participant was very receptive. Provided appropriate educational handouts. Discussed the following topics: Reviewed indoor exercise he enjoys Reviewed benefits from hydration for CKD and DM dx Praised pt on changes he has made Reviewed FBG Created SMART goals for patient self-care and success. Goals: Check FBG daily- improved Look for peaches in juice vs syrup- met Try sf juice- met Spread out fruit intake- met Aim for 16oz 3-4x per day- new Keep walking- new Restart yoga- new Follow-up: VIKTOR TIMMONS follow-up in 2-3 months or sooner rylan Santiago RDN, SHANELLE Certified Diabetes Care and Forming Machine Upkeep Mechanic P: [phone] Thank you for this referral
== END ==
LOC: DIET 08:33
PROVIDERS: PCP Family Medicine; Referring Provider Family Medicine
DX: E11.22 Type 2 diabetes mellitus with diabetic chronic kidney disease (principal); N18.9 Chronic kidney disease, unspecified; Z71.3 Dietary counseling and surveillance; Z83.3 Family history of diabetes mellitus; Z79.4 Long term (current) use of insulin
CPT/HCPCS: 97803